=== PATIENT | female | born 1975 | race Caucasian/White ===

== ENCOUNTER 2018-02-23 23:20 | Observation (INO) | payer OTHER ==
--- NOTE | 2018-02-23 23:56 | RAD ---
CHEST ONE VIEW: History: Chest pain. Comparison: 12-11-12 FINDINGS: Cardiac silhouette is magnified by projection. Pulmonary vasculature is unremarkable. Mediastinum is midline. No lobar consolidation or evidence of pneumothorax. custom shop worker leads overlie the chest. IMPRESSION: No active cardiopulmonary abnormalities are demonstrated. POS: [facility]
[2018-02-24 00:50] LABS: #Basophils 0.1 thou/uL (0.0-0.2); #Eosinphils 0.4 thou/uL (0.0-0.7); #Lymphocytes 4.2 thou/uL (1.20-3.40); #Monocytes 0.5 thou/uL (0.11-0.59); #Neutrophils 6.2 thou/uL (1.40-6.50); %Eosinophils 3.2 % (0.0-10.0); %Lymphocytes 36.8 % (21.0-51.0); %Monocytes 4.7 % (0.0-10.0); %Neutrophils 54.3 % (42.0-75.0); Hemoglobin 15.7 g/dL (12.0-16.0); Mean Corpuscular HGB CONC 32.9 g/dL (32.0-36.0); Mean Corpuscular Hemoglobin 29.3 pg (27.0-31.0); Mean Corpuscular Volume 89.2 fL (78.0-98.0); Mean Platelet Volume 7.7 fL (7.4-10.4); Platelet Count 217 thou/uL (130-400); RBC Distribution Width 13.8 % (11.5-14.5); Red Blood Cell (RBC) Count 5.36 mill/uL (4.20-5.40); White Blood Cell (WBC) Count 11.4 thou/uL (4.8-10.8)
[2018-02-24 00:57] LABS: BHCG - Serum Negative (NEGATIVE); Pregs Control Background? CLEAR/WHITE (CLR/WHITE); Pregs Control Bar Appear? YES (CONTROL BAR)
[2018-02-24 00:59] LABS: INR-International Normal Ratio 0.9; PTT 27.2 SEC (22.9-36.1); Prothrombin Time 12.2 SEC (12.0-14.7)
[2018-02-24 01:07] LABS: ALT (SGPT) 16 U/L (8-55); AST (SGOT) 14 U/L (5-34); Albumin 4.2 g/dL (3.5-5.0); Alkaline Phosphatase 78 U/L (40-150); Anion Gap 14 mmol/L (10-20); BUN (Urea Nitrogen) 17 mg/dL (7.0-18.7); Bilirubin, Total 0.3 mg/dL (0.2-1.2); Calc. Creatinine Clearance 0 mL/min (70-130); Calcium 10.1 mg/dL (7.8-10.44); Carbon Dioxide 21 mmol/L (22-29); Chloride 105 mmol/L (98-107); Estimated GFR-MDRD 72; Globulin 3.9 g/dL (2.4-3.5); Glucose 160 mg/dL (70-105); Lipase 54 U/L (8-78); Protein, Total 8.1 g/dL (6.0-8.3); Sodium 136 mmol/L (136-145)
[2018-02-24 01:09] LABS: CKMB 0.5 ng/mL (0-6.6); Troponin I Less than 0.010 ng/mL (< 0.028)
[2018-02-24 02:06] LABS: Thyroid Stimulating Hormone 3.2386 uIU/mL (0.35-4.94)
[2018-02-24 03:00] LABS: Pregnancy Test - Urine (BHCG) Negative (Negative); Pregu Control Background? CLEAR/WHITE (CLR/WHITE); Pregu Control Bar Appear? YES (CONTROL BAR); Specific Gravity 1.056 (1.002-1.036)
[2018-02-24] MEDS ORDERED: Acetaminophen 325 MG TAB PO PRN ×2 (03:52→07:58)
[2018-02-24] MEDS ORDERED: Ondansetron ODT 4 MG TAB SL PRN (03:52)
[2018-02-24] MEDS ORDERED: Ondansetron HCl/PF 4 MG/2 ML Vial IVP PRN ×2 (03:52→07:58)
[2018-02-24 04:09] VITALS: BMI 54.6
[2018-02-24 05:34] LABS: Troponin I Less than 0.010 ng/mL (< 0.028)
[2018-02-24] MEDS ORDERED: busPIRone HCl 10 MG TAB PO SCH (05:45)
[2018-02-24] MEDS ORDERED: OXcarbazepine 300 MG/5 ML UDCUP PO SCH ×3 (05:45→21:00)
[2018-02-24] MEDS ORDERED: Senokot 8.6 MG TAB PO PRN (07:58)
[2018-02-24] MEDS ORDERED: Sodium Chloride 0.65% Nasal 44 ML BOT EA NARE PRN (07:58)
[2018-02-24] MEDS ORDERED: Mag-Al 1200 mg/1200 mg/30 ML UDCUP PO PRN (07:58)
[2018-02-24] MEDS ORDERED: HumaLOG 300 UNITS/3 ML VIAL SC PRN (07:58)
[2018-02-24] MEDS ORDERED: Milk Of Magnesia 30 ML UDCUP PO PRN (07:58)
[2018-02-24] MEDS ORDERED: Dextrose 50% Abboject 50 ML SYRINGE SLOW IVP PRN (07:58)
[2018-02-24] MEDS ORDERED: Eucerin (Mineral Oil/Petrolatum,White) 30 gm Jar TOP PRN (07:58)
[2018-02-24] MEDS ORDERED: Nitroglycerin 0.4 MG TAB (25 Tab Bottle) SL PRN (07:58)
[2018-02-24] MEDS ORDERED: Chloraseptic Spray 180 ml Bottle PO PRN (07:58)
[2018-02-24] MEDS ORDERED: Dextrose 5% in Water 1,000 ML IV PRN (07:58)
[2018-02-24] MEDS ORDERED: Ondansetron ODT 4 MG TAB PO PRN (07:58)
[2018-02-24] MEDS ORDERED: Loratadine 10 MG TAB PO PRN (07:58)
[2018-02-24] MEDS ORDERED: Artificial Tears 18 DROP/0.9 ML EA EYE PRN (07:58)
[2018-02-24] MEDS ORDERED: Loperamide HCl 2 MG CAP PO PRN (07:58)
[2018-02-24] MEDS ORDERED: Diabetic Tussin 200 MG/10 ML UDCUP PO PRN (07:58)
[2018-02-24] MEDS ORDERED: hydrALAZINE 20 MG/ML VIAL SLOW IVP PRN (07:58)
[2018-02-24] MEDS ORDERED: Aspirin 325 MG TAB PO SCH ×2 (09:00)
[2018-02-24] MEDS ORDERED: (Canagliflozin [Invokana] 300 MG) PO SCH (09:00)
[2018-02-24 09:14] LABS: Cardiac Risk 4.9 (Less than 4.5)
--- NOTE | 2018-02-24 09:16 | CT ---
PRELIMINARY REPORT/[facility]/EMERGENTY AFTER-HOURS PROCEDURE CT Angiography Chest With Intravenous Contrast EXAM DATE/TIME: 02/24/2018 1:55 AM CLINICAL HISTORY: 42 years old, female; Pain; Chest pain; Patient HX: Er 1; PT with HX HTN, dm, cad, unknown arrhythmia , and multiple dvts on eliquis presents for central chest pressure, palpitations, and difficulty burton thing starting about 4 hours ago. Denies any recent fever, chills, cough, congestion, or other illnes s. Reports that she has had palpitations in the past but they usually go away. Took her BP at home an d noted it to be elevated at 162/120. TECHNIQUE: Axial computed tomographic angiography images of the chest with intravenous contrast using CT angiogr aphy protocol. MIP reconstructed images were created and reviewed. COMPARISON: No relevant prior studies available. FINDINGS: Pulmonary arteries: Normal. No pulmonary emboli. Aorta: Normal. No aortic aneurysm. No aortic dissection. Lungs: Indeterminate 5 mm pulmonary nodule. Lungs otherwise clear. Pleural space: Normal. No pneumothorax. No pleural effusion. Heart: Normal. No cardiomegaly. No pericardial effusion. Mediastinum: Esophagus is unremarkable. Bones/joints: Unremarkable. No acute fracture. Soft tissues: Unremarkable. Lymph nodes: Unremarkable. No enlarged lymph nodes. Gallbladder and bile ducts: Prior cholecystectomy. Spleen: Borderline splenomegaly. IMPRESSION: Borderline splenomegaly. Thank you for allowing us to participate in the care of your patient. Dictated and Authenticated by: Kd Anand MD 02/24/2018 2:09 AM Central Time ([place] & [place]) FINAL REPORT CTA OF THE CHEST: COMPARISON: 01/07/16. HISTORY: Hypertension. Coronary artery disease. Unknown arrhythmia. Multiple DVTs. Central chest pain. Di fficulty breathing. TECHNIQUE: CT angiogram of the chest was performed in the axial plane. Three-dimensional reformatted images are submitted for interpretation. FINDINGS: This report is in agreement with the preliminary report by [facility]. No evidence of pulmonary artery embo lism to the level of the segmental arteries. No evidence of dissection or aneurysm with regards to t he aorta. The spleen is mildly enlarged measuring 14.3 cm. Dependent atelectatic changes. Stable pleural-based nodule along the superior segment of the left lo wer lobe measuring 5 mm. There has been more than 2 years of stability. POS: [facility]
[2018-02-24 09:17] LABS: Troponin I Less than 0.010 ng/mL (< 0.028)
[2018-02-24] MEDS: Metoprolol Tartrate 25 MG TAB PO SCH ×2 (09:20→21:08)
[2018-02-24] MEDS: Famotidine 20 MG TAB PO SCH ×2 (09:20→21:09)
[2018-02-24] MEDS: Venlafaxine HCl XR 150 MG CAP PO SCH (09:20)
[2018-02-24] MEDS: Apixaban 5 MG TAB PO SCH ×2 (09:20→21:09)
[2018-02-24] MEDS: busPIRone HCl 10 MG TAB PO SCH ×2 (09:20→21:11)
[2018-02-24] MEDS: Aspirin 81 mg Enteric Coated Tablet PO SCH (09:20)
--- NOTE | 2018-02-24 13:55 | HP ---
PRIMARY CARE PHYSICIAN: Dr. Dimitry Penn REASON FOR ADMISSION: Chest pain. HISTORY OF PRESENT ILLNESS: A 42-year-old female who came to emergency room with the complaint of chest pain. The patient reports that chest pain started yesterday in the evening time which was substernal in location, constant, pressure-like sensation as if somebody seated on her chest, mild discomfort noted in left shoulder, but no other radiation. She did feel some shortness of breath, dizziness, palpitation and weakness. The pain was persistent up until she arrived to emergency room. Even when I was taking history and physical from her this morning, she was also experiencing similar symptoms which brought her to ER. The patient denies any acid reflux symptoms. She does have acid reflux symptoms , but at this presentation is completely different and it has nothing to do with food or any burping. She denies any constipation, diarrhea. She denies any UTI symptoms. She denies any lower extremity edema or calf tenderness. She does have a history of DVT and she is on chronic anticoagulation with Eliquis in the emergency room, the patient had chest x-ray which was normal. She had CT angio which was negative for pulmonary embolism. The patient had routine blood test done in the emergency room which was completely negative. REVIEW OF SYSTEMS: The following complete review of systems was negative, unless otherwise mentioned in the HPI or below: Constitutional: Weight loss or gain, ability to conduct usual activities. Skin: Rash, itching. Eyes: Double vision, pain. ENT/Mouth: Nose bleeding, neck stiffness, pain, tenderness. Cardiovascular: Palpitations, dyspnea on exertion, orthopnea. Respiratory: Shortness of breath, wheezing, cough, hemoptysis, fever or night sweats. Gastrointestinal: Poor appetite, abdominal pain, heartburn, nausea, vomiting, constipation, or diarrhea. Genitourinary: Urgency, frequency, dysuria, nocturia. Musculoskeletal: Pain, swelling. Neurologic/Psychiatric: Anxiety, depression. Allergy/Immunologic: Skin rash, bleeding tendency. Please see my HPI for pertinent positive and negative. All other review of systems reviewed and negative except as mentioned in the HPI. PAST MEDICAL HISTORY: Morbid obesity, diabetes type 2, hypertension, atrial fibrillation, dyslipidemia, history of recurrent DVT, chronic anticoagulation with Eliquis. PAST SURGICAL HISTORY: Cyst removed from ovary, endometriosis, cholecystectomy , breast augmentation and history of breast reduction, benign tumor removed from neck, laparotomy. PAST PSYCHIATRIC HISTORY: Schizoaffective disorder, bipolar disorder, anxiety disorder. SOCIAL HISTORY: Patient is . She lives at home. No history of tobacco , alcohol or illicit drug abuse. She is an ex-smoker and quit smoking more than 10 years ago. FAMILY HISTORY: No strong family history of CAD, CVA or cancer. ALLERGIES: PENICILLIN, TORADOL. CURRENT HOME MEDICATIONS: Trileptal 750 mg p.o. b.i.d., venlafaxine 300 mg p.o. daily, trazodone 100 mg p.o. at bedtime, metoprolol tartrate 25 mg p.o. b.i.d., metformin 1000 mg p.o. daily, Ativan 1 mg p.o. at bedtime, Atarax 50 mg p.o. at bedtime, cetirizine 10 mg p.o. daily, Invokana 300 mg p.o. daily, buspirone 30 mg p.o. b.i.d., Lipitor 10 mg p.o. at bedtime, aspirin 81 mg p.o. daily, Eliquis 5 mg p.o. b.i.d. EMERGENCY ROOM COURSE: The patient was given aspirin. PHYSICAL EXAMINATION: VITAL SIGNS: On arrival, blood pressure 161/69, pulse 96, respiratory rate 18, temperature 98.6, saturation 97% on room air, weight 140 kilograms. GENERAL: The patient is currently alert, awake, no obvious acute distress. HEENT: Head normocephalic, atraumatic. Eyes: Pupils round, reactive to light. Extraocular muscle intact. ENT: Oropharynx within normal limits. Moist mucous membranes, no oral lesion, no pharyngeal erythema, no exudate. NECK: Supple, no JVD, no thyromegaly, no carotid bruit, no jugular venous distention. LUNGS: Clear to auscultation without any rhonchi or rales. CARDIAC: S1, S2 regular. No murmur, no gallop, no rub. ABDOMEN: Morbid obesity present. Bowel sounds present, nontender, nondistended. No peritoneal sign, no epigastric or right upper quadrant tenderness. BACK: Unremarkable, no CVA tenderness. EXTREMITIES: Upper extremity passive movement of all joints are normal. Lower extremities: No edema. Good distal pulsation, no calf tenderness. SKIN: No skin rash. HEMATOLOGICAL: No lymphadenopathy. PSYCHIATRIC: Normal affect. SIGNIFICANT LABORATORY DATA: EKG showing incomplete right bundle branch block pattern. Chest x-ray based on my review, no acute cardiopulmonary process. CT angio negative for PE, but borderline splenomegaly. CBC: WBC 11.4, hemoglobin 15.7, platelet 217. INR 0.9. Sodium 136, potassium 4.0, chloride 105, carbon dioxide 21, BUN 17, creatinine 0.86, calcium 10.1. LFT normal. Cardiac enzymes negative x3. BNP less than 10. Lipase 54. test negative. TSH 3.23. ASSESSMENT AND PLAN: 1. Chest pain. The patient's chest pain description is atypical. She has negative cardiac enzymes. EKG is unremarkable. She has negative CT angio. She is already on chronic anticoagulation therapy. She is hemodynamically stable. At this point, but based on the patient's risk factor profile her probability of coronary artery disease with this chest pain is mild, but needs to be excluded. Patient cannot walk on treadmill and that is why we need to do pharmacological stress test. If stress test is done today and if it is negative , then we will consider discharging her home later on today or maybe early tomorrow. Because of her obesity, we are suspecting that she may need a 2 day stress test protocol. The patient already had breakfast this morning so that is why we will try to do at least resting part and then subsequently stress part if possible today. Lipid profile checked which is also within normal limit. We will monitor on telemetry floor and then we will continue with aspirin 81 mg p.o. daily. 2. History of atrial fibrillation as well as history of recurrent DVT on chronic anticoagulation with Eliquis 5 mg p.o. b.i.d. Currently, patient is in sinus rhythm. We will monitor on telemetry floor. CT angio is negative for PE. 3. Dyslipidemia. Lipid profile checked and it is within normal limit. Continue Lipitor 10 mg p.o. at bedtime. 4. Diabetes type 2. We will continue with insulin as per sliding scale protocol. We will hold metformin because of CT angio and Invokana we do not carry in our hospital. 5. Anxiety, depression, schizoaffective disorder. We will continue Trileptal 750 mg p.o. at bedtime, trazodone 100 mg p.o. at bedtime, Effexor XR 300 mg p.o. daily, buspirone 30 mg p.o. b.i.d. 6. Morbid obesity with BMI of 54. Dietary education given, weight loss education given. Healthy lifestyle measures discussed with the patient. 7. Deep venous thrombosis prophylaxis not needed because patient is already on Eliquis therapy. 8. Gastrointestinal prophylaxis. Pepcid 20 mg p.o. b.i.d. CODE STATUS: The patient is FULL CODE. The patient's is surrogate decision maker. Disposition plan based on clinical course. We are expecting the patient's stay in hospital 24 hours. Plan of care discussed with the patient and her at bedside. BUDDYD
[2018-02-24] MEDS: HumaLOG 300 UNITS/3 ML VIAL SC PRN (14:54)
[2018-02-24] MEDS ORDERED: Lorazepam 1 MG TAB PO SCH (21:00)
[2018-02-24] MEDS ORDERED: Atorvastatin Calcium 10 MG TAB PO SCH (21:00)
[2018-02-24] MEDS ORDERED: hydrOXYzine 25 MG TAB PO SCH (21:00)
[2018-02-24] MEDS ORDERED: traZODone HCl 50 MG TAB PO SCH (21:00)
[2018-02-24] MEDS: HYDROcodone/Acetaminophen 5/325 mg Tablet PO PRN (21:07)
[2018-02-25] MEDS ORDERED: Canagliflozin [Invokana] 300 MG PO SCH (09:00)
[2018-02-25] MEDS: Aspirin 81 mg Enteric Coated Tablet PO SCH (10:38)
[2018-02-25] MEDS: busPIRone HCl 10 MG TAB PO SCH (10:38)
[2018-02-25] MEDS: Apixaban 5 MG TAB PO SCH (10:38)
[2018-02-25] MEDS: Famotidine 20 MG TAB PO SCH (10:39)
[2018-02-25] MEDS: Venlafaxine HCl XR 150 MG CAP PO SCH (10:40)
[2018-02-25] MEDS: Metoprolol Tartrate 25 MG TAB PO SCH (10:40)
[2018-02-25] MEDS: HumaLOG 300 UNITS/3 ML VIAL SC PRN (10:49)
--- NOTE | 2018-02-25 11:36 | NM ---
MYOCARDIAL PERFUSION SCAN: 02/25/2018 PROVIDED CLINICAL HISTORY: Chest pain. RADIOPHARMACEUTICAL: Technetium 99m labeled sestamibi, 27 millicuries, IV stress. Technetium 99m labeled sestamibi, 27 millicuries, IV rest. FINDINGS: There is a normal, homogeneous distribution of radiotracer throughout the left ventricular myocardium , on both stress and rest. Gated data demonstrate normal myocardial wall motion and thickening, with a calculated LVEF of 67%. TID is 0.98. IMPRESSION: No scintigraphic evidence for ischemia. POS: [facility]
--- NOTE | 2018-02-25 12:16 | DIS ---
DATE OF ADMISSION: 02/24/2018 DATE OF DISCHARGE: 02/25/2018 DISCHARGE DISPOSITION: Home. PRIMARY DISCHARGE DIAGNOSIS: Chest pain, ruled out acute coronary syndrome. SECONDARY DISCHARGE DIAGNOSES: 1. History of paroxysmal atrial fibrillation. 2. Morbid obesity with BMI 54. 3. Hypertension. 4. History of deep venous thrombosis. 5. Chronic anticoagulation. 6. Diabetes, type 2. PRIMARY PROCEDURE/OPERATION: None. RADIOLOGICAL INVESTIGATION: Chest x-ray normal. CT angio negative for PE. Stress test negative for ischemia. SIGNIFICANT LABORATORY DATA: Hemoglobin 15.7, INR 0.9, LDL 88. Cardiac enzymes negative x3. Creati nine 0.86. DISCHARGE MEDICATIONS: New medication: Protonix 40 mg p.o. daily. Continue following medications: Eliquis 5 mg p.o. b.i.d., aspirin 81 mg p.o. daily, Lipitor 10 mg p.o. at bedtime, buspirone 30 mg p .o. b.i.d., Invokana 300 mg p.o. daily, cetirizine 10 mg p.o. daily, Atarax 50 mg p.o. at bedtime, At oniel 1 mg p.o. at bedtime, metformin 1000 mg p.o. daily, metoprolol 25 mg p.o. b.i.d., oxcarbazepine 750 mg p.o. at bedtime, Trazodone 100 mg p.o. at bedtime, and venlafaxine 300 mg p.o. daily. CONTRAINDICATIONS: None. CODE STATUS: FULL CODE. INPATIENT CONSULTANTS: None. ALLERGIES: TORADOL, PENICILLIN. DISCHARGE PLAN: Post hospital, the patient will follow up with Dr. Fili Moraes in 1 week. HOSPITAL COURSE: A 42-year-old female, who was admitted by me. Please see my HPI for further detail s. The patient was admitted for chest pain. In the emergency room, her electrocardiogram was unrema rkable. Chest x-ray and a CT angio was negative for PE. She had negative cardiac enzymes. Subseque ntly, patient did not have any further chest pain while in hospital. Her description was atypical an d that is why we did a stress test and that came back negative. Stress test was done in 2 days lyle col because of her morbid obesity. We suspected acid reflux contributing to her chest pain and that is why we prescribed Protonix therapy upon discharge. The rest of medications she will continue upon discharge. We holded metformin because of CT angio while in hospital. She will resume that medicat ion tomorrow. The patient is seen and examined at bedside today. All test results discussed with the patient and f amily member. Her vitals are stable. Her physical examination is normal. New medication prescripti on sent to her pharmacy.
[2018-02-25] MEDS: HYDROcodone/Acetaminophen 5/325 mg Tablet PO PRN (12:58)
[2018-02-25 18:31] VITALS: BP 135/71; TEMP 97.7
--- NOTE | 2018-02-26 13:33 | STRESS ---
Acquisition Time: 2018-02-25 09:03:23 Total Exercise Time: 00:04:00 Test Indications: CHEST PAIN Medications: Protocol: ADENOSINE Max HR: 107 BPM 60% of Pred: 178 BPM Max BP: 118/070 mmHG Max Work Load: 1.0 METS THE PATIENT WAS INJECTED WITH ADENOSINE. SHE DID DEVELOP CHEST PAIN. THERE WAS NO SIGNIFICANT ST DEPRESSION. AWAIT NUCLEAR IMAGES FOR DEFINITIVE DIAGNOSIS. Confirmed by ISABEL KIDD ([id number]), video effects editor ISAURO GONZALEZ ([id number]) on 02/26/2018 1:32:50 PM Referred By: MD Meghna KWONG Confirmed By:ISABEL KIDD
== END 2018-02-25 17:40 | disposition home or self-care (01) ==
LOC: ERS 23:20 → 2NO 02-24 02:34
PROVIDERS: ADMIT Internal Medicine; ATTEND Internal Medicine
DX: R07.89 Other chest pain (principal); E11.9 Type 2 diabetes mellitus without complications; I10 Essential (primary) hypertension; E78.5 Hyperlipidemia, unspecified; F41.9 Anxiety disorder, unspecified; F25.0 Schizoaffective disorder, bipolar type; I48.0 Paroxysmal atrial fibrillation; E66.01 Morbid (severe) obesity due to excess calories; Z68.43 Body mass index [BMI] 50.0-59.9, adult; Z87.891 Personal history of nicotine dependence; Z86.718 Personal history of other venous thrombosis and embolism; Z79.01 Long term (current) use of anticoagulants; Z79.84 Long term (current) use of oral hypoglycemic drugs; Z79.899 Other long term (current) drug therapy; Z88.0 Allergy status to penicillin; Z88.6 Allergy status to analgesic agent; Z79.82 Long term (current) use of aspirin; Z91.048 Other nonmedicinal substance allergy status
CPT/HCPCS: 36415; 36416; 71045; 71275; 78452; 80053; 80061; 81025; 82553; 83690; 83880; 84443; 84484; 84703; 85025; 85610; 85730; 93005; 93017; A9500; G0378; J0153

== ENCOUNTER 2018-03-01 18:18 | Emergency (ER) | payer OTHER ==
[2018-03-01] MEDS ORDERED: Meclizine HCl 25 MG TAB ONE (18:43)
[2018-03-01] MEDS ORDERED: Ondansetron HCl/PF 4 MG/2 ML Vial ONE (18:43)
[2018-03-01] MEDS ORDERED: Lorazepam 2 MG/ML VIAL ONE (18:43)
[2018-03-01] MEDS ORDERED: Dexamethasone 10 MG/ML VIAL ONE (18:43)
[2018-03-01 18:50] LABS: #Basophils 0.1 thou/uL (0.0-0.2); #Eosinphils 0.4 thou/uL (0.0-0.7); #Lymphocytes 3.7 thou/uL (1.20-3.40); #Monocytes 0.3 thou/uL (0.11-0.59); #Neutrophils 4.4 thou/uL (1.40-6.50); %Eosinophils 4.4 % (0.0-10.0); %Lymphocytes 41.2 % (21.0-51.0); %Monocytes 3.6 % (0.0-10.0); %Neutrophils 49.8 % (42.0-75.0); Hemoglobin 15.9 g/dL (12.0-16.0); Mean Corpuscular HGB CONC 33.9 g/dL (32.0-36.0); Mean Corpuscular Hemoglobin 30.1 pg (27.0-31.0); Mean Corpuscular Volume 88.7 fL (78.0-98.0); Mean Platelet Volume 7.6 fL (7.4-10.4); Platelet Count 279 thou/uL (130-400); RBC Distribution Width 13.4 % (11.5-14.5); White Blood Cell (WBC) Count 8.8 thou/uL (4.8-10.8)
[2018-03-01 19:06] LABS: ALT (SGPT) 23 U/L (8-55); AST (SGOT) 19 U/L (5-34); Albumin 4.2 g/dL (3.5-5.0); Alkaline Phosphatase 87 U/L (40-150); Anion Gap 13 mmol/L (10-20); BUN (Urea Nitrogen) 22 mg/dL (7.0-18.7); Bilirubin, Total 0.3 mg/dL (0.2-1.2); Calc. Creatinine Clearance 0 mL/min (70-130); Carbon Dioxide 24 mmol/L (22-29); Chloride 106 mmol/L (98-107); Estimated GFR-MDRD 63; Glucose 188 mg/dL (70-105); Potassium 4.3 mmol/L (3.5-5.1); Protein, Total 8.2 g/dL (6.0-8.3); Sodium 139 mmol/L (136-145)
[2018-03-01 19:11] LABS: CKMB 0.6 ng/mL (0-6.6); Troponin I Less than 0.010 ng/mL (< 0.028)
--- NOTE | 2018-03-01 19:13 | RAD ---
CHEST ONE VIEW 03/01/18 HISTORY: Chest pain. COMPARISON: Chest radiograph 02/23/18. FINDINGS: The lungs are clear. No pneumothorax or effusion. The cardiac silhouette and mediastinal contours are of normal limits. IMPRESSION: No acute intrathoracic abnormality. POS: [facility]
--- NOTE | 2018-03-01 19:57 | ULT ---
LEFT LOWER EXTREMITY VENOUS DOPPLER: 03/01/18 HISTORY: Left lower extremity edema. COMPARISON: None. TECHNIQUE: Real time calvert scale, color doppler and spectral analysis left lower extremity venous system is perfo rmed. Common femoral, femoral, proximal portions of the greater saphenous and deep femoral veins as w ell as the popliteal and posterior tibial veins were interrogated. Normal flow, augmentation and compression. IMPRESSION: No deep venous thrombosis. POS: [facility]
--- NOTE | 2018-03-08 11:32 | EKG ---
Test Reason : Blood Pressure : / mmHG Vent. Rate : 089 BPM Atrial Rate : 089 BPM P-R Int : 134 ms QRS Dur : 102 ms QT Int : 376 ms P-R-T Axes : 011 027 029 degrees QTc Int : 457 ms Normal sinus rhythm Cannot rule out Anterior infarct , age undetermined Abnormal ECG Confirmed by ROSIE LUO, JESS ([id number]), editor index FIORDALIZA HERNANDES ([id number]) on 03/08/2018 11:31:57 AM Referred By: Confirmed By:JESS VELEZ MD
== END 2018-03-01 20:47 | disposition home or self-care (01) ==
LOC: ERS 18:18
DX: R42 Dizziness and giddiness (principal); I48.91 Unspecified atrial fibrillation; E78.5 Hyperlipidemia, unspecified; E11.9 Type 2 diabetes mellitus without complications; E66.9 Obesity, unspecified; F25.9 Schizoaffective disorder, unspecified; F31.9 Bipolar disorder, unspecified; F41.9 Anxiety disorder, unspecified; Z79.899 Other long term (current) drug therapy; Z79.82 Long term (current) use of aspirin
CPT/HCPCS: 71045; 80053; 82550; 82553; 84484; 85025; 93005; 96374; 96375; J1100; J2060; J2405

== ENCOUNTER 2018-05-25 15:03 | Emergency (ER) | payer OTHER ==
--- NOTE | 2018-05-25 18:03 | CT ---
CT CERVICAL SPINE: 05/25/2018 PROVIDED CLINICAL HISTORY: Neck pain. FINDINGS: There is no evidence for fracture or traumatic subluxation. Evaluation of the soft tissues is limite d by beam hardening artifact, related to the patient's body habitus. There is no prevertebral soft t issue swelling apparent. The visualized lung apices appear clear. IMPRESSION: No evidence for fracture or traumatic subluxation. POS: [facility]
== END 2018-05-25 18:07 | disposition home or self-care (01) ==
LOC: ERS 15:03
DX: S16.1XXA Strain of muscle, fascia and tendon at neck level, initial encounter (principal); I49.9 Cardiac arrhythmia, unspecified; I48.91 Unspecified atrial fibrillation; E66.9 Obesity, unspecified; E78.5 Hyperlipidemia, unspecified; E11.9 Type 2 diabetes mellitus without complications; Z86.718 Personal history of other venous thrombosis and embolism; F25.9 Schizoaffective disorder, unspecified; F31.9 Bipolar disorder, unspecified; F41.9 Anxiety disorder, unspecified; Z79.899 Other long term (current) drug therapy; Z79.82 Long term (current) use of aspirin; Z79.01 Long term (current) use of anticoagulants; X58.XXXA Exposure to other specified factors, initial encounter
CPT/HCPCS: 72125

== ENCOUNTER 2019-10-26 18:33 | Emergency (ER) | payer OTHER ==
[2019-10-26 19:24] LABS: #Eosinphils 0.2 thou/uL (0.0-0.7); #Lymphocytes 4.2 thou/uL (1.20-3.40); #Monocytes 0.6 thou/uL (0.11-0.59); #Neutrophils 4.5 thou/uL (1.40-6.50); %Basophils 0.5 % (0.0-1.0); %Lymphocytes 44.5 % (21.0-51.0); %Monocytes 6.2 % (0.0-10.0); %Neutrophils 46.8 % (42.0-75.0); Hemoglobin 17.4 g/dL (12.0-16.0); Mean Corpuscular HGB CONC 33.2 g/dL (32.0-36.0); Mean Corpuscular Hemoglobin 29.7 pg (27.0-31.0); Mean Corpuscular Volume 89.4 fL (78.0-98.0); Mean Platelet Volume 7.4 fL (7.4-10.4); Platelet Count 206 thou/uL (130-400); RBC Distribution Width 12.8 % (11.5-14.5); Red Blood Cell (RBC) Count 5.86 mill/uL (4.20-5.40); White Blood Cell (WBC) Count 9.5 thou/uL (4.8-10.8)
--- NOTE | 2019-10-26 19:37 | RAD ---
CHEST ONE VIEW: Indication: Chest pain Comparison: 11-04-18 FINDINGS: Lungs are clear. Heart size is normal. No acute osseous abnormality is present. IMPRESSION: No acute cardiopulmonary abnormality. POS: [facility]
[2019-10-26 19:46] LABS: ALT (SGPT) 27 U/L (8-55); AST (SGOT) 13 U/L (5-34); Albumin 4.1 g/dL (3.5-5.0); Alkaline Phosphatase 95 U/L (40-110); Anion Gap 14 mmol/L (10-20); BUN (Urea Nitrogen) 21 mg/dL (7.0-18.7); Bilirubin, Total 0.4 mg/dL (0.2-1.2); Calc. Creatinine Clearance 0 mL/min (70-130); Calcium 9.1 mg/dL (7.8-10.44); Carbon Dioxide 20 mmol/L (22-29); Chloride 107 mmol/L (98-107); Estimated GFR-MDRD 80; Globulin 2.6 g/dL (2.4-3.5); Glucose 162 mg/dL (70-105); Protein, Total 6.7 g/dL (6.0-8.3); Sodium 137 mmol/L (136-145)
[2019-10-26 20:10] LABS: BHCG - Serum Negative (NEGATIVE); Pregs Control Background? CLEAR/WHITE (CLR/WHITE); Pregs Control Bar Appear? YES (CONTROL BAR)
--- NOTE | 2019-10-31 15:19 | EKG ---
Test Reason : Blood Pressure : / mmHG Vent. Rate : 097 BPM Atrial Rate : 097 BPM P-R Int : 148 ms QRS Dur : 102 ms QT Int : 364 ms P-R-T Axes : 065 031 031 degrees QTc Int : 462 ms Normal sinus rhythm Possible Inferior infarct , age undetermined Cannot rule out Anterior infarct , age undetermined Abnormal ECG Confirmed by DWIGHT BLAIR DO ([id number]), film and video editor FIORDALIZA HERNANDES ([id number]) on 10/31/2019 3:18:55 PM Referred By: Confirmed By:DWIGHT BLAIR DO
== END 2019-10-26 21:08 | disposition home or self-care (01) ==
LOC: ERS 18:33
DX: R07.89 Other chest pain (principal); I49.9 Cardiac arrhythmia, unspecified; I48.91 Unspecified atrial fibrillation; E66.9 Obesity, unspecified; E78.5 Hyperlipidemia, unspecified; E11.9 Type 2 diabetes mellitus without complications; F25.9 Schizoaffective disorder, unspecified; F31.9 Bipolar disorder, unspecified; F43.10 Post-traumatic stress disorder, unspecified; Z87.891 Personal history of nicotine dependence; Z86.718 Personal history of other venous thrombosis and embolism
CPT/HCPCS: 36415; 71045; 80053; 84484; 84703; 85025; 93005

== ENCOUNTER 2019-11-02 23:00 | Observation (INO) | payer OTHER ==
[2019-11-03] MEDS ORDERED: hydrOXYzine 25 MG TAB ONE (00:18)
[2019-11-03 01:34] LABS: Troponin I Less than 0.010 ng/mL (< 0.028)
[2019-11-03] MEDS ORDERED: HumaLOG 300 UNITS/3 ML VIAL SC PRN ×2 (02:13)
[2019-11-03] MEDS ORDERED: Dextrose 5% in Water 1,000 ML IV PRN (02:13)
[2019-11-03] MEDS ORDERED: Dextrose 50% Abboject 50 ML SYRINGE SLOW IVP PRN (02:13)
[2019-11-03] MEDS ORDERED: Acetaminophen 325 MG TAB PO PRN (02:14)
--- NOTE | 2019-11-03 02:23 | PDOC.HHP ---
Hospitalist HPI - History of Present Illness Chest pain, SOB History of Present Illness: PCP: Dr. Penn Wood Engraver: Dr. Johnson The patient is a 44/F with PMH significant for HTN, HLD, DMII, paroxysmal afib ( on eliquis), bilateral DVT and obesity presents for the above complaint. The patient reports developing acute onset of chest pain and SOB at 1800 this evening while taking a shower. Reports associated light headedness. States that she almost past out, but her son caught her and kept her from falling down. She sat in shower chair until could come home and dress her. Either her son or spouse called EMS. Reports recent cough and congestion, tested negative for COVID approximately 2 weeks ago. Denies any heart palpitations or lower extremity swelling. Denies any wheezing. Denies any fever or chills. Denies any abdominal pain, n/v/d. Denies dysuria. When EMS transferred patient to [facility] ([facility]), she became orthostatic, SBP 60s, so given 1L NS with SBP improved to 130s. ED Course: [place] [facility] EKG Sinus tachycardia, [address] chest/abd/pelvis + pericardial effusion trop negative, BNP unremarkable DD 0.56 WBC 9.6 Given: Hydroxyzine in ED-Beck Hospitalist ROS - Review of Systems Constitutional: denies: fever, chills Eyes: denies: pain, vision change, conjunctivae inflammation, eyelid inflammation, redness, other ENT: denies: ear pain, ear discharge, nose pain, nose discharge, nose congestion , mouth pain, mouth swelling, throat pain, throat swelling, other Respiratory: reports: shortness of breath. denies: hemoptysis, pleuritic pain, sputum, wheezing Cardiovascular: reports: chest pain, light headedness. denies: palpitations, orthopnea, paroxysmal noc. dyspnea, edema Gastrointestinal: denies: nausea, vomiting, abdominal pain, diarrhea, constipation, melena, hematochezia Genitourinary: denies: dysuria, frequency, incontinence, hematuria, retention Musculoskeletal: denies: neck pain, shoulder pain, arm pain, back pain, hand pain, leg pain, foot pain Skin: denies: rash, lesions, bruising Neurological: denies: numbness, incoordination, change in speech Hospitalist History - Past Medical History Cardiac: reports: AFIB, HTN, Hyperlipidemia, Other (bilateral DVTs) Psych: reports: Other (schizoaffective, bipolar, PTSD) Endocrine: reports: Diabetes - Past Surgical History Past Surgical History: reports: Cholecystectomy, Hysterectomy, Other (right ovarian cyst, endometriosis, benign tumor in neck) - Family History Family History: reports: no pertinent history Other Family History: non contributory to this case - Social History Smoking Status: Former smoker (quit 10 years ago) Alcohol: reports: None Drugs: reports: marijuana (rare) Living Situation: With Family Occupation: Lives in [place] with , disabled - Exam General Appearance: NAD, awake alert Eye: anicteric sclera ENT: normocephalic atraumatic, moist mucosa Neck: supple, no JVD Heart: RRR, no murmur, no gallops, no rubs, normal peripheral pulses Respiratory: CTAB, no wheezes, no rales, no ronchi, no tachypnea Gastrointestinal: soft, non-tender, normal bowel sounds, no guarding, no rigidity Extremities: no cyanosis, no edema Neurological: no focal deficits Psychiatric: normal affect, A&O x 3 Hospitalist Results - Labs Lab results: Troponin I Less than 0.010 ng/mL (< 0.028) 11/03/19 00:56 - EKG Interpretation EKG: sinus tachycardia - Radiology Interpretation CT scan - chest Status: report reviewed by me CT scan - abdomen Status: report reviewed by me CT scan - pelvis Status: report reviewed by me Chest x-ray Status: report reviewed by me Hospitalist H&P A/P - Problem (1) Pericardial effusion Code(s): I31.3 - PERICARDIAL EFFUSION (NONINFLAMMATORY) Status: Acute Assessment and Plan: Admit to telemetry floor, observation status Expected length of stay less than 2 midnights Upon exam, resting comfortably in bed, she is anxious, which is baseline from PTSD EKG SR, sinus tach in ER, trop negative, CT chest pericardial effusion BP stable, patient became orthostatic on transfer from [place] [facility] HEART Score 3, low risk Will trend trops Consult cardiology Get echocardiogram Bedrest, fall precautions Continue eliquis, ASA NPO (2) Dyspnea Code(s): R06.00 - DYSPNEA, UNSPECIFIED Status: Acute Assessment and Plan: Likely secondary to problem #1 (3) Paroxysmal A-fib Code(s): I48.0 - PAROXYSMAL ATRIAL FIBRILLATION Status: Chronic Assessment and Plan: Been Sinus tachycardia, NSR on monitor Anticoagulated on Eliquis and Baby ASA (4) DMII (diabetes mellitus, type 2) Status: Chronic Assessment and Plan: Taking multiple oral antihypoglycemic meds Will hold oral antihypoglycemics Will start mild sliding scale Will check AC/HS (5) HTN (hypertension) Code(s): I10 - ESSENTIAL (PRIMARY) HYPERTENSION Status: Chronic Assessment and Plan: Will restart home antihypertensives when reconciled (6) HLD (hyperlipidemia) Code(s): E78.5 - HYPERLIPIDEMIA, UNSPECIFIED Status: Chronic Assessment and Plan: Will restart statin when home meds reconciled. (7) H/O deep venous thrombosis Code(s): Z86.718 - PERSONAL HISTORY OF OTHER VENOUS THROMBOSIS AND EMBOLISM Status: Chronic (8) Morbid obesity with BMI of 50.0-59.9, adult Code(s): E66.01 - MORBID (SEVERE) OBESITY DUE TO EXCESS CALORIES; Z68.43 - BODY MASS INDEX (BMI) 50.0-59.9, ADULT Status: Chronic (9) Schizoaffective disorder, bipolar type Code(s): F25.0 - SCHIZOAFFECTIVE DISORDER, BIPOLAR TYPE Status: Chronic Assessment and Plan: Will restart antipsych meds when reconciled by nursing - Plan Plan: Consult cardiac rehab NO DVT prophylaxis Pepcid for GI prophylaxis Full Code KATLIN is spouse, Noel Freedman at [phone] Angel Hilario
[2019-11-03] MEDS ORDERED: Atorvastatin Calcium 40 MG TAB PO SCH (02:45)
[2019-11-03] MEDS ORDERED: busPIRone HCl 10 MG TAB PO SCH (02:45)
[2019-11-03] MEDS ORDERED: OXcarbazepine 300 MG TAB PO SCH ×2 (02:45→21:00)
[2019-11-03] MEDS ORDERED: Metoprolol Tartrate 25 MG TAB PO SCH (02:45)
[2019-11-03] MEDS ORDERED: Lorazepam 1 MG TAB PO SCH ×2 (02:45→21:00)
[2019-11-03] MEDS ORDERED: Apixaban 5 MG TAB PO SCH ×2 (02:45→09:00)
[2019-11-03] MEDS ORDERED: traZODone HCl 50 MG TAB PO SCH (02:45)
[2019-11-03 04:46] LABS: #Eosinphils 0.2 thou/uL (0.0-0.7); #Monocytes 0.6 thou/uL (0.11-0.59); #Neutrophils 3.8 thou/uL (1.40-6.50); %Basophils 0.3 % (0.0-1.0); %Eosinophils 2.1 % (0.0-10.0); %Lymphocytes 46.6 % (21.0-51.0); %Monocytes 6.4 % (0.0-10.0); %Neutrophils 44.6 % (42.0-75.0); Hemoglobin 15.6 g/dL (12.0-16.0); Mean Corpuscular HGB CONC 32.4 g/dL (32.0-36.0); Mean Corpuscular Hemoglobin 29.2 pg (27.0-31.0); Mean Corpuscular Volume 90.1 fL (78.0-98.0); Mean Platelet Volume 7.5 fL (7.4-10.4); Platelet Count 173 thou/uL (130-400); RBC Distribution Width 12.7 % (11.5-14.5); Red Blood Cell (RBC) Count 5.33 mill/uL (4.20-5.40); White Blood Cell (WBC) Count 8.6 thou/uL (4.8-10.8)
[2019-11-03 05:08] LABS: Anion Gap 13 mmol/L (10-20); BUN (Urea Nitrogen) 19 mg/dL (7.0-18.7); Calc. Creatinine Clearance 241 mL/min (70-130); Calcium 8.5 mg/dL (7.8-10.44); Carbon Dioxide 22 mmol/L (22-29); Chloride 106 mmol/L (98-107); Estimated GFR-MDRD Greater than 90; Glucose 121 mg/dL (70-105); Potassium 3.5 mmol/L (3.5-5.1); Sodium 137 mmol/L (136-145)
[2019-11-03 05:14] LABS: Troponin I Less than 0.010 ng/mL (< 0.028)
[2019-11-03] MEDS: Venlafaxine HCl XR 150 MG CAP PO SCH (08:46)
[2019-11-03] MEDS: Famotidine 20 MG TAB PO SCH ×2 (08:46→20:29)
[2019-11-03] MEDS: Aspirin 81 mg Enteric Coated Tablet PO SCH (08:46)
[2019-11-03] MEDS: Loratadine 10 MG TAB PO SCH (08:46)
[2019-11-03] MEDS: Metoprolol Tartrate 25 MG TAB PO SCH ×2 (08:46→20:29)
[2019-11-03] MEDS: busPIRone HCl 10 MG TAB PO SCH ×2 (08:50→20:28)
[2019-11-03] MEDS: Ibuprofen 800 MG TAB PO PRN ×2 (09:47→21:07)
--- NOTE | 2019-11-03 19:37 | PDOC.EVN ---
Event Note - Event Note Event Note: Seen and examined. Ensured cardiology was consulted. Cardiology states no procedures today, I advanced her diet. Evaluated current medications. Evaluated labs and imaging. Pericardial effusion evident, though unclear chronicity. Patient is on Eliquis and may need to be off for a period of time before any intervention would be attempted, though she appears clinically stable. She is breathing comfortably on room air. She does have some chest discomfort and shortness of breath with ambulation. Time was given for questions, all answered in detail.
[2019-11-03] MEDS: Atorvastatin Calcium 40 MG TAB PO SCH (20:28)
[2019-11-03] MEDS: Enoxaparin Sodium 80 MG/0.8 ML SYRINGE SC SCH (20:28)
[2019-11-03] MEDS: Enoxaparin Sodium 60 MG/0.6 ML SYRINGE SC SCH (20:28)
[2019-11-03] MEDS: traZODone HCl 50 MG TAB PO SCH (20:29)
[2019-11-03] MEDS: Cyclobenzaprine 10 MG TAB PO PRN (20:30)
[2019-11-03] MEDS: hydrOXYzine 25 MG TAB PO PRN (20:30)
[2019-11-03] MEDS: OXcarbazepine 300 MG TAB PO SCH (21:07)
--- NOTE | 2019-11-04 00:12 | CON ---
DATE OF CONSULTATION: 11/03/2019 REASON FOR CONSULTATION: Chest pain and pericardial effusion. PRIMARY PROFESSOR OF ENVIRONMENTAL STUDIES: Sher Johnson MD HISTORY OF PRESENT ILLNESS: Ms. Freedman is a pleasant 44-year-old white female, who comes to the hospital for several complaints. She states she felt very weak. She had chest tightness. She had tingling in her arms and feet. She was seen in the ER for this and a CT chest, abdomen, and pelvis was done that found a small pericardial effusion. Because of this effusion, Cardiology is being consulted. She was hypotensive when she would stand up, so she was given IV fluids and this has resolved since. On my evaluation, Ms. Freedman denies any chest pain, tightness, pressure. She says she feels still somewhat weak, but better. PAST MEDICAL HISTORY: 1. History of atrial fibrillation. 2. Hypertension. 3. Hyperlipidemia. 4. Chronic DVTs. 5. Schizoaffective disorder. 6. Bipolar disorder. 7. PTSD. 8. Type 2 diabetes. SURGICAL HISTORY: 1. Cholecystectomy. 2. Hysterectomy. 3. Right ovarian cyst and removal of endometriosis. 4. Benign tumor in the neck, removed. FAMILY HISTORY: Noncontributory. SOCIAL HISTORY: Quit smoking 10 years ago. Rare marijuana use. No alcohol. OUTPATIENT MEDICATIONS: 1. Cyclobenzaprine. 2. Zyrtec. 3. Eliquis 5 mg b.i.d. 4. Invokana. 5. BuSpar. 6. Lipitor. 7. Aspirin 81 a day. 8. Metoprolol 25 mg b.i.d. 9. Lorazepam. 10. Oxcarbazepine. 11. Venlafaxine. 12. Pantoprazole. 13. Trazodone. 14. Metformin. 15. Hydroxyzine. ALLERGIES: 1. ADHESIVE TAPE. 2. KETOROLAC. 3. PENICILLIN. REVIEW OF SYSTEMS: A 12-point review of systems was done and was all negative unless stated in the history of present illness. PHYSICAL EXAMINATION: VITAL SIGNS: Temperature 98.7, pulse 89, respiratory rate 18, saturating 96% on room air, blood pressure 120/69. GENERAL: Awake, alert, oriented x3. No distress. HEENT: Normocephalic, atraumatic. NECK: Supple. LUNGS: Clear. CARDIOVASCULAR: S1, S2. No S3 or S4. No murmurs. ABDOMEN: Soft. Positive bowel sounds. EXTREMITIES: No edema. SKIN: Warm and dry. LABORATORY DATA: Laboratory work was reviewed. CMP is unremarkable. I ordered a CRP earlier today and it was undetectable. Troponin was negative x2. Glucose was a little bit on the high side. CBC with a white count of 8, hemoglobin of 15, hematocrit of 48, platelet count of 173. EKG is unremarkable. Echocardiogram was reviewed. Very minimal fluid if any. EF was normal. Grade 2/3 diastolic dysfunction. ASSESSMENT: 1. Atypical chest pain. 2. Small pericardial effusion. 3. Normal inflammatory markers. PLAN: 1. At this point, given her normal inflammatory markers, I think she will benefit from further risk stratification with a heart catheterization. I doubt that her symptoms are related to pericarditis as the fluid is minimum, she has no EKG changes, and her symptoms are atypical for pericarditis. 2. We will plan on stopping Eliquis and bridging with subcu Lovenox, we will plan on doing a heart catheterization probably or Saturday depending on the situation. We will most likely do it afternoon. 3. We spoke at length about the risks and benefits of the procedure. Risks included, but not limited to stroke, [place], , bleeding, need for blood transfusion, limb loss, organ loss. The patient verbalized understanding of this and agrees to proceed. Further recommendations per results of coronary angiogram. Thank you for letting us to participate in the care of your patient. Job ID: [id number]
[2019-11-04] MEDS: HYDROcodone/Acetaminophen 5/325 mg Tablet PO PRN ×2 (03:10→21:39)
[2019-11-04] MEDS: Enoxaparin Sodium 80 MG/0.8 ML SYRINGE SC SCH ×2 (08:15→21:32)
[2019-11-04] MEDS: Enoxaparin Sodium 60 MG/0.6 ML SYRINGE SC SCH ×2 (08:15→21:32)
[2019-11-04] MEDS: Venlafaxine HCl XR 150 MG CAP PO SCH (08:15)
[2019-11-04] MEDS: busPIRone HCl 10 MG TAB PO SCH ×2 (08:16→21:36)
[2019-11-04] MEDS: Famotidine 20 MG TAB PO SCH (08:16)
[2019-11-04] MEDS: Aspirin 81 mg Enteric Coated Tablet PO SCH (08:16)
[2019-11-04] MEDS: Loratadine 10 MG TAB PO SCH (08:16)
[2019-11-04] MEDS: Metoprolol Tartrate 25 MG TAB PO SCH ×2 (08:16→21:36)
[2019-11-04] MEDS ORDERED: Meclizine HCl 25 MG TAB PO PRN (10:28)
[2019-11-04] MEDS: Ibuprofen 800 MG TAB PO PRN (10:32)
[2019-11-04] MEDS: hydrOXYzine 25 MG TAB PO PRN ×2 (10:32→23:05)
--- NOTE | 2019-11-04 13:36 | PDOC.CPN ---
- Subjective Date: 11/04/19 Time: 13:00 Interval history: She is doing ok. She had chest pain overnight. Inflammatory markers normal. Chest pain positional at times but not always. - Review of Systems General: denies: fever/chills, weight/appetite/sleep changes, night sweats, fatigue Respiratory: reports: shortness of breath. denies: cough, congestion, exercise intolerance Cardiovascular: reports: chest pain. denies: palpitation, edema, paroxysmal nocturnal dyspnea, orthopnea Gastrointestinal: denies: nausea, vomiting, diarrhea, constipation, abd pain, GI bleeding Musculoskeletal: denies: pain, tenderness, stiffness, swelling, arthritis/ arthralgias Neurological: denies: numbness, syncope, seizure, weakness - Objective Allergies/Adverse Reactions: Allergies Allergy/AdvReac Type Severity Reaction Status Date / Time adhesive tape Allergy Verified 09/06/19 16:20 ketorolac tromethamine Allergy Verified 09/06/19 16:20 [From Toradol] Penicillins Allergy Verified 09/06/19 16:20 Visit Medications: Current Medications Acetaminophen (Tylenol) 650 mg PO Q4H PRN PRN Reason: Headache/Fever/Mild Pain (1-3) Hydrocodone Bitart/Acetaminophen ([place] 5/325) 1 tab PO Q4H PRN PRN Reason: Moderate to Severe Pain (6-10) Last Admin: 11/04/19 03:10 Dose: 1 tab Aspirin (Ecotrin) 81 mg PO DAILY [facility] Last Admin: 11/04/19 08:16 Dose: 81 mg Atorvastatin Calcium (Lipitor) 40 mg PO HS [facility] Last Admin: 11/03/19 20:28 Dose: 40 mg Buspirone HCl (Buspar) 30 mg PO BID [facility] Last Admin: 11/04/19 08:16 Dose: 30 mg Cyclobenzaprine HCl (Flexeril) 10 mg PO TID PRN PRN Reason: Muscle Pain Last Admin: 11/03/19 20:30 Dose: 10 mg Dextrose/Water (Dextrose 50%) 25 gm SLOW IVP PRN PRN PRN Reason: Hypoglycemia Enoxaparin Sodium (Lovenox) 80 mg SC 0900,2100 [facility] Last Admin: 11/04/19 08:15 Dose: 80 mg Enoxaparin Sodium (Lovenox) 60 mg SC 0900,2100 [facility] Last Admin: 11/04/19 08:15 Dose: 60 mg Famotidine (Pepcid) 20 mg PO BID [facility] Last Admin: 11/04/19 08:16 Dose: 20 mg Glucagon (Glucagon) 1 mg IM PRN PRN PRN Reason: Hypoglycemia Hydroxyzine HCl (Atarax) 100 mg PO TIDPRN PRN PRN Reason: Anxiety Last Admin: 11/04/19 10:32 Dose: 100 mg Dextrose/Water (D5w) 1,000 mls @ 0 mls/hr IV .Q0M PRN PRN Reason: Hypoglycemia Ibuprofen (Motrin) 800 mg PO Q8H PRN PRN Reason: Moderate Pain (4-6) Last Admin: 11/04/19 10:32 Dose: 800 mg Insulin Human Lispro (Humalog) 0 units SC .MILD SLIDING SCALE PRN PRN Reason: Mild Correctional Scale Insulin Human Lispro (Humalog) 0 units SC .BEDTIME SLIDING SC PRN PRN Reason: Bedtime Correctional Scale Loratadine (Claritin) 10 mg PO DAILY [facility] Last Admin: 11/04/19 08:16 Dose: 10 mg Lorazepam (Ativan) 1 mg PO BID [facility] Meclizine HCl (Antivert) 25 mg PO DAILY PRN PRN Reason: vertigo Metoprolol Tartrate (Lopressor) 25 mg PO BID [facility] Last Admin: 11/04/19 08:16 Dose: 25 mg Oxcarbazepine (Trileptal) 1,350 mg PO HS [facility] Last Admin: 11/03/19 21:07 Dose: 1,350 mg Pantoprazole Sodium (Protonix) 40 mg PO DAILY [facility] Last Admin: 11/04/19 08:16 Dose: 40 mg Canagliflozin [ (Invokana] 300 Mg) 0 each PO DAILY [facility] Sodium Chloride (Flush - Normal Saline) 10 ml IVF PRN PRN PRN Reason: Saline Flush Last Admin: 11/04/19 08:16 Dose: 10 ml Trazodone HCl (Desyrel) 100 mg PO [facility] Last Admin: 11/03/19 20:29 Dose: 100 mg Venlafaxine HCl (Effexor Xr) 300 mg PO DAILY [facility] Last Admin: 11/04/19 08:15 Dose: 300 mg Vital Signs & Weight: Vital Signs Temp Pulse Resp BP BP BP Pulse Ox 11/04/19 11:33 98.2 F 77 18 103/72 98 11/04/19 06:55 98.7 F 94 16 103/58 L 94 L 11/04/19 02:58 97.8 F 75 16 109/70 95 Weight 325 lb - Physical Exam General: alert & oriented x3 HEENT: mucus membranes moist Neck: supple neck Cardiac: regular rate and rhythm Lungs: clear to auscultation Neuro: grossly intact Abdomen: active bowel sounds Extremities: 1+ LE edema Skin: clear Musculoskeletal: no pain - Labs Result Diagrams: 11/03/19 04:13 11/03/19 04:13 Troponin/CKMB Troponin I Less than 0.010 ng/mL (< 0.028) 11/03/19 04:13 - Telemetry Sinus rhythms and dysrhythmias: sinus rhythm - Assessment/Plan Assessment/Plan: 1. Chest pain 2. Small pericardial effusion 3. Bipolar 4. Anxiety PLAN: - Since her inflammatory markers are negative will proceed with [facility] to evaluate for CAD. - We spoke at length about risks and benefits of procedure. Risks included but not limited to stroke, [place], , bleeding and need for blood transfusion, limb loss, organ loss. She agrees to proceed. Also spoke about conscious sedation. She states she gets so nervous that likely best access would be femoral. - C tomorrow afternoon.
[2019-11-04] MEDS ORDERED: Communication Order-Pharmacy FS SCH (13:45)
--- NOTE | 2019-11-04 14:02 | PDOC.HOSPP ---
- Subjective Encounter Date: 11/04/19 Encounter Time: 08:40 Subjective: Pt seen for followup re: chest pain. Feels better today. - Objective Vital Signs & Weight: Vital Signs (12 hours) Temp Pulse Resp BP BP BP Pulse Ox 11/04/19 11:33 98.2 F 77 18 103/72 98 11/04/19 06:55 98.7 F 94 16 103/58 L 94 L 11/04/19 02:58 97.8 F 75 16 109/70 95 Weight Weight 325 lb I&O: 11/03/19 11/04/19 11/05/19 06:59 06:59 06:59 Intake Total 1760 Output Total 650 Balance 1110 Result Diagrams: 11/03/19 04:13 11/03/19 04:13 Additional Labs: Accuchecks 11/04/19 11/04/19 11/03/19 10:46 05:59 20:41 POC Glucose 205 H 121 H 148 H 11/03/19 16:42 POC Glucose 158 H Labs and MARs reviewed by me EKG Reviewed by me: Yes (Tele: NSR) Hospitalist ROS - Review of Systems Constitutional: denies: fever, chills, sweats, weakness, malaise Respiratory: reports: SOB with excertion. denies: cough, dry, shortness of breath, hemoptysis, pleuritic pain, sputum, wheezing Cardiovascular: reports: chest pain. denies: palpitations, orthopnea, paroxysmal noc. dyspnea, edema, light headedness Gastrointestinal: denies: nausea, vomiting, abdominal pain, diarrhea, constipation, melena, hematochezia Genitourinary: denies: dysuria, frequency, incontinence, hematuria, retention - Medication Medications: Active Medications Generic Name Dose Route Start Last Admin Trade Name Freq PRN Reason Stop Dose Admin Hydrocodone Bitart/Acetaminophen 1 tab 11/03/19 09:36 11/04/19 03:10 [place] 5/325 PO 1 tab Q4H PRN Administration Moderate to Severe Pain (6-10) Aspirin 81 mg 11/03/19 09:00 11/04/19 08:16 Ecotrin PO 81 mg DAILY [facility] Administration Atorvastatin Calcium 40 mg 11/03/19 21:00 11/03/19 20:28 Lipitor PO 40 mg HS [facility] Administration Buspirone HCl 30 mg 11/03/19 09:00 11/04/19 08:16 Buspar PO 30 mg BID [facility] Administration Cyclobenzaprine HCl 10 mg 11/03/19 02:16 11/03/19 20:30 Flexeril PO 10 mg TID PRN Administration Muscle Pain Enoxaparin Sodium 80 mg 11/03/19 21:00 11/04/19 08:15 Lovenox SC 11/04/19 23:59 80 mg 0900,2099 [facility] Administration Enoxaparin Sodium 60 mg 11/03/19 21:00 11/04/19 08:15 Lovenox SC 11/04/19 23:59 60 mg 0900,2099 [facility] Administration Famotidine 20 mg 11/03/19 09:00 11/04/19 08:16 Pepcid PO 20 mg BID [facility] Administration Hydroxyzine HCl 100 mg 11/03/19 02:16 11/04/19 10:32 Atarax PO 100 mg TIDPRN PRN Administration Anxiety Ibuprofen 800 mg 11/03/19 09:35 11/04/19 10:32 Motrin PO 800 mg Q8H PRN Administration Moderate Pain (4-6) Loratadine 10 mg 11/03/19 09:00 11/04/19 08:16 Claritin PO 10 mg DAILY [facility] Administration Metoprolol Tartrate 25 mg 11/03/19 09:00 11/04/19 08:16 Lopressor PO 25 mg BID [facility] Administration Oxcarbazepine 1,350 mg 11/03/19 21:00 11/03/19 21:07 Trileptal PO 1,350 mg HS [facility] Administration Pantoprazole Sodium 40 mg 11/03/19 09:00 11/04/19 08:16 Protonix PO 40 mg DAILY [facility] Administration Sodium Chloride 10 ml 11/03/19 02:11 11/04/19 08:16 Flush - Normal Saline IVF 10 ml PRN PRN Administration Saline Flush Trazodone HCl 100 mg 11/03/19 21:00 11/03/19 20:29 Desyrel PO 100 mg HS [facility] Administration Venlafaxine HCl 300 mg 11/03/19 09:00 11/04/19 08:15 Effexor Xr PO 300 mg DAILY [facility] Administration - Exam General Appearance: awake alert Eye: anicteric sclera ENT: moist mucosa Neck: supple, symmetric, no thyromegaly, no lymphadenopathy Heart: RRR, no gallops, no rubs, normal peripheral pulses Respiratory: CTAB, no rales, no ronchi, normal chest expansion Gastrointestinal: soft, non-tender, normal bowel sounds, no palpable masses Skin: no rashes Musculoskeletal: normal tone Psychiatric: normal affect, normal behavior, A&O x 3 Hosp A/P - Plan Assessment/Plan (1) Chest pain Code(s): I31.3 - PERICARDIAL EFFUSION (NONINFLAMMATORY) Status: Acute Await cath, oral anticoagulant on hold. (2) Pericardial effusion Code(s): I31.3 - PERICARDIAL EFFUSION (NONINFLAMMATORY) Status: Acute Assessment and Plan: Cardiology following (3) Paroxysmal A-fib Code(s): I48.0 - PAROXYSMAL ATRIAL FIBRILLATION Status: Chronic Assessment and Plan: Eliquis on hold, pt is on Lovenox (4) HLD (hyperlipidemia) Code(s): E78.5 - HYPERLIPIDEMIA, UNSPECIFIED Status: Chronic Assessment and Plan: Continue statin (5) HTN (hypertension) Code(s): I10 - ESSENTIAL (PRIMARY) HYPERTENSION Status: Chronic Assessment and Plan: Will restart home antihypertensives when reconciled (6) DMII (diabetes mellitus, type 2) Status: Chronic Assessment and Plan: Continue accuchecks and insulin sliding scale. Resume Invokana. (7) H/O deep venous thrombosis Code(s): Z86.718 - PERSONAL HISTORY OF OTHER VENOUS THROMBOSIS AND EMBOLISM Status: Chronic (8) Morbid obesity with BMI of 50.0-59.9, adult Code(s): E66.01 - MORBID (SEVERE) OBESITY DUE TO EXCESS CALORIES; Z68.43 - BODY MASS INDEX (BMI) 50.0-59.9, ADULT Status: Chronic (9) Schizoaffective disorder, bipolar type Code(s): F25.0 - SCHIZOAFFECTIVE DISORDER, BIPOLAR TYPE Status: Chronic Assessment and Plan: Will restart antipsych meds when reconciled by nursing
[2019-11-04] MEDS: OXcarbazepine 300 MG TAB PO SCH (21:33)
[2019-11-04] MEDS: Atorvastatin Calcium 40 MG TAB PO SCH (21:35)
[2019-11-04] MEDS: Lorazepam 1 MG TAB PO SCH (21:36)
[2019-11-04] MEDS: traZODone HCl 50 MG TAB PO SCH (21:36)
[2019-11-04] MEDS: Cyclobenzaprine 10 MG TAB PO PRN (23:05)
[2019-11-05] MEDS ORDERED: Sodium Chloride 0.9% 500 ML IV SCH ×2 (00:01→13:00)
[2019-11-05] MEDS: Aspirin 81 mg Enteric Coated Tablet PO SCH (05:49)
[2019-11-05] MEDS: busPIRone HCl 10 MG TAB PO SCH (05:49)
[2019-11-05] MEDS: Loratadine 10 MG TAB PO SCH (05:50)
[2019-11-05] MEDS: Lorazepam 1 MG TAB PO SCH (05:50)
[2019-11-05] MEDS: Metoprolol Tartrate 25 MG TAB PO SCH (05:51)
[2019-11-05] MEDS: Venlafaxine HCl XR 150 MG CAP PO SCH (05:51)
[2019-11-05] MEDS: hydrOXYzine 25 MG TAB PO PRN (08:02)
[2019-11-05] MEDS: Cyclobenzaprine 10 MG TAB PO PRN ×2 (08:02→16:57)
[2019-11-05] MEDS ORDERED: Canagliflozin [Invokana] 300 MG PO SCH (09:00)
[2019-11-05 09:17] LABS: Anion Gap 11 mmol/L (10-20); BUN (Urea Nitrogen) 20 mg/dL (7.0-18.7); Calc. Creatinine Clearance 221 mL/min (70-130); Calcium 8.4 mg/dL (7.8-10.44); Carbon Dioxide 24 mmol/L (22-29); Chloride 107 mmol/L (98-107); Estimated GFR-MDRD 84; Glucose 153 mg/dL (70-105); Potassium 3.4 mmol/L (3.5-5.1); Sodium 139 mmol/L (136-145)
[2019-11-05 09:32] LABS: Eosinophils 3 % (0-10); Hemoglobin 13.8 g/dL (12.0-16.0); Lymphocytes 54 % (21-51); MDiff Complete? YES; Mean Corpuscular HGB CONC 33.8 g/dL (32.0-36.0); Mean Corpuscular Hemoglobin 30.2 pg (27.0-31.0); Mean Corpuscular Volume 89.4 fL (78.0-98.0); Mean Platelet Volume 7.5 fL (7.4-10.4); Monocytes 1 % (0-10); Neutrophil 41 % (42-75); Platelet Count 140 thou/uL (130-400); Platelet Morphology Comment Appears Adequate; RBC Distribution Width 12.4 % (11.5-14.5); RBC Morphology Normal; Red Blood Cell (RBC) Count 4.56 mill/uL (4.20-5.40); White Blood Cell (WBC) Count 5.1 thou/uL (4.8-10.8)
[2019-11-05] MEDS ORDERED: Iopamidol 370 76% 100 ML VIAL ONE (09:35)
[2019-11-05] MEDS ORDERED: Midazolam HCl 2 mg/2 ml Vial ONE (12:06)
[2019-11-05] MEDS ORDERED: Fentanyl 100 MCG/2 ML VIAL ONE (12:07)
[2019-11-05] MEDS ORDERED: Ondansetron PF 4 MG/2 ML Vial ONE (12:32)
[2019-11-05] MEDS ORDERED: Sodium Chloride 0.9% 200 ML IV PRN (12:46)
[2019-11-05] MEDS ORDERED: Acetaminophen/Codeine 30-300mg Tablet PO PRN (12:46)
[2019-11-05] MEDS ORDERED: Ibuprofen 800 MG TAB PO SCH (14:00)
[2019-11-05 15:36] VITALS: BP 128/80; TEMP 98.7
[2019-11-05] MEDS ORDERED: Potassium Chloride 20 MEQ TAB PO SCH (16:30)
[2019-11-05] MEDS: HYDROcodone/Acetaminophen 5/325 mg Tablet PO PRN (16:57)
--- NOTE | 2019-11-06 03:55 | DIS ---
DATE OF ADMISSION: 11/03/2019 DATE OF DISCHARGE: 11/05/2019 PRIMARY CARE PROVIDER: Dr. Dimitry Penn. DISCHARGE DIAGNOSES: 1. Chest pain. 2. Chest pain, most likely secondary to musculoskeletal etiology. 3. Pericardial effusion. 4. Hypokalemia. CONDITION OF PATIENT ON THE DAY OF DISCHARGE: Stable. I assessed Ms. Freedman on the day of discharge. She reports that chest pain has improved. Vital signs are stable. S1 and S2 are heard, regular. Lungs are clear to auscultation bilaterally. CONSULTATIONS DURING THIS HOSPITALIZATION: Cardiology, Dr. Johnson. HOSPITAL COURSE: Ms. Freedman is a pleasant 44-year-old lady, who was admitted to [facility] on November 03, 2019 for chest pain. There was no evidence of pulmonary embolism on CT scan. She was seen by Cardiology Service. 2D echocardiogram showed left ventricular ejection fraction of 60% to 65% and grade 2/3 diastolic dysfunction. She underwent cardiac catheterization on November 05, 2019 and has been cleared for discharge by Cardiology Service. At the time of this dictation, the official cath report is pending. No change was made to her pre-admission home medications. POST-ACUTE CARE FOLLOWUP: With primary care provider in 3 days. DIET: Heart healthy and diabetic. ACTIVITY: No restrictions. DISCHARGE DESTINATION: Home. Many thanks for allowing me to participate in your patient's care. Please feel free to contact me with any questions or concerns. Job ID: [id number]
[2019-11-06] MEDS ORDERED: Apixaban 5 MG TAB PO SCH (09:00)
== END 2019-11-05 18:06 | disposition home or self-care (01) ==
LOC: ERS 23:00 → 2NO 11-03 00:48
PROVIDERS: ADMIT Internal Medicine; ATTEND Internal Medicine
PROC: 4A023N7 Measurement of Cardiac Sampling and Pressure, Left Heart, Percutaneous Approach (ICD-10-PCS; principal; 2019-11-05)
PROC: B2111ZZ Fluoroscopy of Multiple Coronary Arteries using Low Osmolar Contrast (ICD-10-PCS; 2019-11-05)
DX: R07.89 Other chest pain (principal); I31.3 Pericardial effusion (noninflammatory); E87.6 Hypokalemia; I48.0 Paroxysmal atrial fibrillation; I10 Essential (primary) hypertension; E78.5 Hyperlipidemia, unspecified; E11.9 Type 2 diabetes mellitus without complications; F43.10 Post-traumatic stress disorder, unspecified; F25.0 Schizoaffective disorder, bipolar type; F41.9 Anxiety disorder, unspecified; E66.01 Morbid (severe) obesity due to excess calories; Z68.43 Body mass index [BMI] 50.0-59.9, adult; Z86.718 Personal history of other venous thrombosis and embolism; Z87.891 Personal history of nicotine dependence; Z79.01 Long term (current) use of anticoagulants; Z79.82 Long term (current) use of aspirin; Z79.84 Long term (current) use of oral hypoglycemic drugs; Z79.899 Other long term (current) drug therapy; Z88.0 Allergy status to penicillin; Z88.6 Allergy status to analgesic agent; Z91.048 Other nonmedicinal substance allergy status
CPT/HCPCS: 36415; 36416; 76942; 80048; 84484; 85025; 85652; 86140; 93306; 93458; 94760; 96372; 99152; 99153; 99285; C1769; G0378; J1644; J1650; J2250; J2405; J3010; Q9967

== ENCOUNTER 2020-07-29 23:16 | Observation (INO) | payer OTHER ==
[2020-07-30] MEDS ORDERED: metroNIDAZOLE 500 MG/100 ML BAG ONE (00:05)
[2020-07-30] MEDS ORDERED: Ondansetron PF 4 MG/2 ML Vial ONE (00:10)
[2020-07-30] MEDS ORDERED: Morphine 4 MG/ML VIAL ONE (00:10)
[2020-07-30] MEDS: Morphine 4 MG/ML VIAL SLOW IVP PRN ×2 (04:11→08:24)
[2020-07-30] MEDS ORDERED: Ondansetron ODT 4 MG TAB SL PRN (04:15)
[2020-07-30] MEDS ORDERED: Ondansetron PF 4 MG/2 ML Vial IVP PRN ×2 (04:15→15:33)
[2020-07-30] MEDS ORDERED: Sodium Chloride 0.9% 1,000 ML IV SCH (04:15)
[2020-07-30 04:44] VITALS: BMI 53.8
[2020-07-30] MEDS ORDERED: metroNIDAZOLE 500 MG in Premix Bag 1 BAG IVPB SCH (08:00)
[2020-07-30 09:37] LABS: SARS-CoV-2 PCR by NAA Not Detected (NotDetected)
--- NOTE | 2020-07-30 09:42 | HP ---
CHIEF COMPLAINT: Right lower quadrant abdominal pain. HISTORY OF PRESENT ILLNESS: This is a 45-year-old female with a 3-day history of right lower quadrant pain associated with nausea and anorexia. No fever. CT scan showed appendicitis. PAST MEDICAL HISTORY: Significant for morbid obesity, diabetes mellitus, paroxysmal atrial fibrillation, deep venous thrombosis x2, bipolar, schizophrenia. PAST SURGICAL HISTORY: Cholecystectomy, hysterectomy, breast reduction, ovarian cystectomy. MEDICATIONS: She is on, 1. Eliquis, her last dose was 24 hours ago. 2. Lorazepam. 3. Meclizine. 4. Invokana. 5. Metformin. 6. Trazodone. 7. Tizanidine. 8. She is on something exenatide microspheres. 9. Metoprolol. 10. Hydroxyzine. 11. Atorvastatin. 12. Buspirone. ALLERGIES: SHE HAS AN ALLERGY TO PENICILLIN CAUSING VOMITING AND TORADOL MAKES HER SICK. SOCIAL HISTORY: She is . No tobacco. Social alcohol. Mother had heart disease and CHF. PHYSICAL EXAMINATION: VITAL SIGNS: Temperature 98.8, pulse 78, blood pressure 104/70. GENERAL: She is a morbidly obese female, lying still, in minimal distress, awake and alert. LUNGS: Clear. HEART: Regular rate and rhythm. ABDOMEN: Morbidly obese, soft. She is tender on the right lower quadrant. She has well-healed surgical scars from laparoscopy. EXTREMITIES: Unremarkable. LABORATORY DATA: Her white count is 10, H and H of 15 and 49, platelet count 168. Her coags are normal. Sodium is 141, potassium 4.1, chloride 106, CO2 of 27, BUN 20, creatinine 0.8, glucose 109. CT scan shows acute appendicitis without abscess. ASSESSMENT: Acute appendicitis. PLAN: Laparoscopic appendectomy. CONSENT: I have discussed planned procedure as well as risk of bleeding, infection, injury to bowel and bladder, need to open. She understands and gives informed consent. Job ID: [id number]
[2020-07-30 12:14] LABS: SARS-CoV-2 NAA Rapid Test Not Detected (NotDetected)
[2020-07-30] MEDS ORDERED: Morphine 4 MG/ML VIAL SLOW IVP PRN (12:22)
[2020-07-30] MEDS ORDERED: Fentanyl 100 MCG/2 ML VIAL ONE ×3 (14:00→16:04)
[2020-07-30] MEDS ORDERED: XYLOCAINE 2%-EPI 1:100,000 20 ML VIAL ONE (14:04)
[2020-07-30] MEDS ORDERED: Metoclopramide HCl 10 MG/2 ML VIAL ONE (14:04)
[2020-07-30] MEDS ORDERED: Bupivacaine 0.25% HCL 30 ML VIAL ONE (14:04)
[2020-07-30] MEDS ORDERED: Lidocaine 1% PF 5 ML VIAL ONE (14:04)
[2020-07-30] MEDS ORDERED: Rocuronium Bromide 10 MG/ML (10ML VIAL) ONE (14:04)
[2020-07-30] MEDS ORDERED: PROPOFOL 200 MG/20 ML VIAL ONE (14:04)
[2020-07-30] MEDS ORDERED: Promethazine HCl 25 MG/ML VIAL IM PRN (15:33)
[2020-07-30] MEDS ORDERED: HYDROcodone/Acetaminophen 10/325 mg Tablet PO PRN ×2 (15:33)
[2020-07-30] MEDS ORDERED: hydrALAZINE 20 MG/ML VIAL SLOW IVP PRN (15:33)
[2020-07-30] MEDS ORDERED: Dextrose 5% in Water 1,000 ML IV PRN (15:33)
[2020-07-30] MEDS ORDERED: Dextrose 50% Abboject 50 ML SYRINGE SLOW IVP PRN (15:33)
[2020-07-30] MEDS ORDERED: D5 1/2 NS w/20 mEq KCL 1,000 ML IV SCH (15:45)
[2020-07-30] MEDS ORDERED: D5 1/2 NS w/20 mEq KCL 1,000 ML ONE (16:14)
[2020-07-30 18:47] VITALS: BP 109/74; TEMP 98.7
[2020-07-30] MEDS ORDERED: Famotidine/PF 20 mg/2ml Vial SLOW IVP SCH (21:00)
[2020-07-30] MEDS ORDERED: Famotidine 20 MG TAB PO SCH (21:00)
[2020-07-30] MEDS ORDERED: Levofloxacin 500 mg/D5W 100 ml Premix Bag IVPB SCH (23:59)
[2020-07-31] MEDS ORDERED: Enoxaparin Sodium 40 MG/0.4 ML SYRINGE SC SCH (09:00)
--- NOTE | 2020-07-31 17:37 | OP ---
DATE OF PROCEDURE: 07/30/2020 PREOPERATIVE DIAGNOSIS: Acute appendicitis. PROCEDURE PERFORMED: Laparoscopic appendectomy. INDICATIONS: A 45-year-old female with a 2-day history of right lower quadrant pain. CT scan showed appendicitis. FINDINGS: Acute suppurative nonperforated appendicitis. DESCRIPTION OF PROCEDURE: After informed consent was obtained, the patient was taken to the operating room and given general endotracheal anesthesia, placed in the supine position. Abdomen was prepped and draped in usual fashion. Local anesthesia was infiltrated subcutaneously and deep, and a subumbilical incision was performed. Subcu divided sharply. The fascia was grasped and 2 stay sutures of 0 Vicryl placed through each side of midline. Midline incised. Digital palpation revealed no local adhesions. A blunt 12 mm trocar inserted. Pneumoperitoneum was created to a pressure of 15 mmHg. A 0-degree laparoscope was inserted under direct vision. Two 5-mm ports were placed, one suprapubic, one right lateral abdomen. The appendix was found. The mesoappendix was divided utilizing the LigaSure. The base of the appendix was divided with a linear 45 mm white load stapler. The appendix was placed in an endosac and removed from the abdomen in the endosac. Hemostasis was assured. The abdomen was irrigated. Irrigation fluid removed. Trocars and retractors removed. The fascia was closed with interrupted 0 Vicryl suture. The skin closed with interrupted 4-0 Rapide. Dermabond applied. The patient tolerated the procedure well, transferred to Recovery in good condition. Sponge and needle count verified correct x2. Job ID: [id number]
--- NOTE | 2020-08-03 15:23 | EKG ---
Test Reason : Blood Pressure : / mmHG Vent. Rate : 074 BPM Atrial Rate : 074 BPM P-R Int : 156 ms QRS Dur : 124 ms QT Int : 394 ms P-R-T Axes : 012 002 019 degrees QTc Int : 437 ms Normal sinus rhythm Possible Inferior infarct , age undetermined Cannot rule out Anterior infarct , age undetermined Abnormal ECG No previous ECGs available Confirmed by DAVID WAY (2) on 08/03/2020 3:23:04 PM Referred By: Confirmed By:DAVID WAY
== END 2020-07-30 18:49 | disposition home or self-care (01) ==
LOC: ERS 23:16 → SURG A 07-30 03:47
PROVIDERS: ADMIT Surgery; ATTEND Surgery
PROC: 0DTJ4ZZ Resection of Appendix, Percutaneous Endoscopic Approach (ICD-10-PCS; principal; 2020-07-30)
DX: K35.80 Unspecified acute appendicitis (principal); E11.9 Type 2 diabetes mellitus without complications; I48.0 Paroxysmal atrial fibrillation; F31.9 Bipolar disorder, unspecified; F20.9 Schizophrenia, unspecified; E66.01 Morbid (severe) obesity due to excess calories; Z68.43 Body mass index [BMI] 50.0-59.9, adult; Z86.718 Personal history of other venous thrombosis and embolism; Z79.01 Long term (current) use of anticoagulants; Z79.82 Long term (current) use of aspirin; Z79.84 Long term (current) use of oral hypoglycemic drugs; Z79.899 Other long term (current) drug therapy; Z88.0 Allergy status to penicillin; Z88.6 Allergy status to analgesic agent; Z91.048 Other nonmedicinal substance allergy status; Z20.822 Contact with and (suspected) exposure to COVID-19
CPT/HCPCS: 36416; 87635; 88304; 93005; 93010; 96365; 96366; 96367; 96375; 96376; G0378; J1956; J2270; J2405; J2704; J2765; J3010; J3480; S0020; U0002; U0003; U0005

== ENCOUNTER 2021-04-13 09:15 | Outpatient (CLI) | payer OTHER ==
[2021-04-13] MEDS ORDERED: Magnevist 469MG/ML 20 ML VIAL ONE (09:33)
== END 2021-04-13 09:16 | disposition home or self-care (01) ==
LOC: TBSIIMAG 09:15
PROVIDERS: ATTEND Nurse Practitioner Acute Care
DX: G44.309 Post-traumatic headache, unspecified, not intractable (principal)
CPT/HCPCS: 70553; A9579

== ENCOUNTER 2021-09-20 12:23 | Outpatient (CLI) | payer OTHER | END 2021-09-20 12:24 | disposition home or self-care (01) | LOC: EEG 12:23 | PROVIDERS: ATTEND Psychiatry & Neurology Neurology | DX: G44.309 Post-traumatic headache, unspecified, not intractable (principal); N39.0 Urinary tract infection, site not specified | CPT/HCPCS: 95816; 95957 ==

== ENCOUNTER 2021-11-23 05:59 | Day surgery (SDC) | payer OTHER ==
[2021-11-22 10:00] VITALS: BMI 54.3
[2021-11-23] MEDS ORDERED: Lidocaine 1% MPF 2 ML VIAL ONE (06:34)
[2021-11-23] MEDS ORDERED: Fentanyl 100 MCG/2 ML VIAL ONE (07:54)
[2021-11-23] MEDS ORDERED: Ondansetron PF 4 MG/2 ML Vial ONE ×2 (07:54→08:25)
[2021-11-23] MEDS ORDERED: Midazolam HCl 2 mg/2 ml Vial ONE (07:54)
[2021-11-23] MEDS ORDERED: PROPOFOL 200 MG/20 ML VIAL ONE (08:25)
[2021-11-23] MEDS ORDERED: Lidocaine 1% PF 5 ML VIAL ONE (08:25)
== END 2021-11-23 09:50 | disposition home or self-care (01) ==
LOC: SDC 05:59 → EEVIPCON 05:59 → SDC 09:50
PROVIDERS: ATTEND Internal Medicine Gastroenterology
PROC: 0DBH8ZZ Excision of Cecum, Via Natural or Artificial Opening Endoscopic (ICD-10-PCS; principal; 2021-11-23)
PROC: 0DB58ZX Excision of Esophagus, Via Natural or Artificial Opening Endoscopic, Diagnostic (ICD-10-PCS; principal; 2021-11-23)
DX: D12.0 Benign neoplasm of cecum (principal); K31.89 Other diseases of stomach and duodenum; R10.13 Epigastric pain; I48.91 Unspecified atrial fibrillation; Z86.010 Personal history of colon polyps; Z88.0 Allergy status to penicillin; Z88.8 Allergy status to other drugs, medicaments and biological substances; Z91.048 Other nonmedicinal substance allergy status; Z86.718 Personal history of other venous thrombosis and embolism; Z79.01 Long term (current) use of anticoagulants; Z79.899 Other long term (current) drug therapy; Z91.030 Bee allergy status; Z91.038 Other insect allergy status; Z87.891 Personal history of nicotine dependence
CPT/HCPCS: 88305; J2250; J2405; J2704; J3010

== ENCOUNTER 2022-01-10 07:09 | Outpatient (CLI) | payer OTHER ==
[2022-01-10] MEDS ORDERED: Iopamidol 300 61% 100 ML VIAL FS ONE (09:05)
== END 2022-01-10 07:10 | disposition home or self-care (01) ==
LOC: BICCT 07:09
PROVIDERS: ATTEND Physician Assistant Medical
DX: R10.10 Upper abdominal pain, unspecified (principal); K59.00 Constipation, unspecified; R82.998 Other abnormal findings in urine; K76.0 Fatty (change of) liver, not elsewhere classified
CPT/HCPCS: 74177; Q9967

== ENCOUNTER 2022-05-18 15:00 | Emergency (ER) | payer OTHER ==
[2022-05-18] MEDS ORDERED: methylPREDNISolone Sod Succ/PF 125 MG/2 ML VIAL ONE (17:03)
[2022-05-18] MEDS ORDERED: Magnesium 2 GM/50 ML BAG (IN WATER) ONE (17:03)
[2022-05-18] MEDS ORDERED: diphenhydrAMINE 50 MG/ML VIAL ONE (17:03)
[2022-05-18] MEDS ORDERED: Metoclopramide HCl 10 MG/2 ML VIAL ONE (17:03)
[2022-05-18 19:01] LABS: Bilirubin Negative (Negative); Blood, Urine Negative (Negative); Clarity Clear (Clear); Glucose, Urine (Dipstick) Greater than 1000 mg/dL (Negative); Ketone, Urine Negative (Negative); Leukocyte Negative Leu/uL (Negative); Nitrite Negative (Negative); Protein, Urine (Dipstick) Negative (Neg-Trace); Specific Gravity, Urine 1.038 (1.002-1.036); Urobilinogen Normal mg/dL (Less than 2)
[2022-05-18] MEDS ORDERED: Ondansetron PF 4 MG/2 ML Vial ONE (19:17)
[2022-05-18] MEDS ORDERED: Acetaminophen 500 MG TAB ONE (19:17)
[2022-05-18] MEDS ORDERED: Ibuprofen 200 MG TAB ONE (19:17)
== END 2022-05-18 20:33 | disposition home or self-care (01) ==
LOC: ERS 15:00
DX: G43.909 Migraine, unspecified, not intractable, without status migrainosus (principal); E11.9 Type 2 diabetes mellitus without complications; E78.5 Hyperlipidemia, unspecified
CPT/HCPCS: 81003; 96365; 96375; J1200; J2405; J2765; J2930; J3475

== ENCOUNTER 2022-07-14 14:37 | Inpatient (IN) | payer OTHER ==
[2022-07-14] MEDS ORDERED: LORazepam 2 MG/ML SYR.(CARPUJECT) ONE ×2 (14:55→16:07)
[2022-07-14] MEDS ORDERED: Naloxone HCl 0.4 mg/ml Vial ONE (15:04)
[2022-07-14 15:27] LABS: #Eosinphils 0.2 thou/uL (0.0-0.7); #Lymphocytes 2.9 thou/uL (1.20-3.40); #Monocytes 0.4 thou/uL (0.11-0.59); #Neutrophils 2.9 thou/uL (1.40-6.50); %Basophils 0.5 % (0.0-1.0); %Eosinophils 3.1 % (0.0-10.0); %Lymphocytes 45.2 % (21.0-51.0); %Monocytes 6.1 % (0.0-10.0); %Neutrophils 45.1 % (42.0-75.0); Hemoglobin 14.1 g/dL (12.0-16.0); Mean Corpuscular HGB CONC 34.4 g/dL (32.0-36.0); Mean Corpuscular Hemoglobin 31.6 pg (27.0-31.0); Mean Corpuscular Volume 91.8 fl (78.0-98.0); Platelet Count 189 10x3/uL (130-400); RBC Distribution Width 11.8 % (11.5-14.5); Red Blood Cell (RBC) Count 4.46 mill/uL (4.20-5.40); White Blood Cell (WBC) Count 6.4 10x3/uL (4.8-10.8)
[2022-07-14 15:29] LABS: Actual Bicarbonate (HCO3v) 18 mEq/L (22-28); Analyzer IN Cardio ER; Base Excess -7.4 mEq/L (-2.0 to +3.0); Calcium, Ionized (venous) 1.19 mmol/L (1.16-1.32); Chloride (VBG) 106 mmol/L (98-106); Hemoglobin (Hb) 14.4 g/dL (11.7-16.0); Potassium (VBG) 3.73 mmol/L (3.70-5.30); Sodium 140.2 mmol/L (133-146); pH (venous) 7.32 (7.32-7.43)
[2022-07-14 15:32] LABS: BHCG - Serum Negative (NEGATIVE); Pregs Control Background? CLEAR/WHITE (CLR/WHITE); Pregs Control Bar Appear? YES (CONTROL BAR)
[2022-07-14 15:52] LABS: ALT (SGPT) 44 U/L (8-55); AST (SGOT) 37 U/L (5-34); Acetaminophen Less than 10.0 mcg/mL (10.0-30.0); Albumin 4.3 g/dL (3.5-5.0); Alcohol Less than 10 mg/dL (Less than 10); Alkaline Phosphatase 37 U/L (40-110); Anion Gap 17 mmol/L (10-20); BUN (Urea Nitrogen) 16 mg/dL (7.0-18.7); Bilirubin, Total 0.3 mg/dL (0.2-1.2); CK (CPK) 72 U/L (29-168); Calc. Creatinine Clearance 0 mL/min (70-130); Calcium 9.8 mg/dL (7.8-10.44); Carbon Dioxide 20 mmol/L (22-29); Chloride 105 mmol/L (98-107); Estimated GFR 89; Globulin 3.1 g/dL (2.4-3.5); Glucose 90 mg/dL (70-105); Potassium 3.5 mmol/L (3.5-5.1); Protein, Total 7.4 g/dL (6.0-8.3); Salicylate Less than 8.0 mg/dL (15.0-30.0); Sodium 138 mmol/L (136-145)
[2022-07-14 16:02] LABS: Bilirubin Negative (Negative); Blood, Urine Negative (Negative); Clarity Clear (Clear); Glucose, Urine (Dipstick) Greater than 1000 mg/dL (Negative); Ketone, Urine Negative (Negative); Leukocyte Negative Leu/uL (Negative); Nitrite Negative (Negative); Protein, Urine (Dipstick) Negative (Neg-Trace); Specific Gravity, Urine 1.039 (1.002-1.036); Urobilinogen Normal mg/dL (Less than 2); pH, Urine 5.5 (5.0-9.0)
[2022-07-14 16:10] LABS: Amphetamine Not Detected (NotDetected); Barbiturates Screen Not Detected (NotDetected); Benzodiazepine Screen Detected (NotDetected); Cocaine Metabolite Screen Not Detected (NotDetected); Methadone Not Detected (NotDetected); Methamphetamine Not Detected (NotDetected); Opiate Screen Not Detected (NotDetected); Oxycodone Screen Not Detected (NotDetected); Phencyclidine (PCP) Not Detected (NotDetected); THC/Cannabinoid Screen Detected (NotDetected); Tricyclic Screen Not Detected (NotDetected)
[2022-07-14] MEDS ORDERED: Acetaminophen 500 MG TAB ONE ×2 (16:51→16:55)
[2022-07-14] MEDS ORDERED: diphenhydrAMINE 50 MG/ML VIAL ONE (16:51)
[2022-07-14] MEDS ORDERED: Metoclopramide HCl 10 MG/2 ML VIAL ONE (16:51)
[2022-07-14] MEDS ORDERED: Senokot S 8.6-50 MG TAB PO PRN (17:22)
[2022-07-14] MEDS ORDERED: Acetaminophen 325 MG TAB PO PRN (17:22)
[2022-07-14] MEDS ORDERED: Bisacodyl 5 MG TAB PO PRN (17:22)
[2022-07-14] MEDS ORDERED: Ondansetron PF 4 MG/2 ML Vial IVP PRN (17:22)
[2022-07-14] MEDS ORDERED: Dextrose 50% Abboject 50 ML SYRINGE SLOW IVP PRN (17:24)
[2022-07-14] MEDS ORDERED: Dextrose 5% in Water 1,000 ML IV PRN (17:24)
[2022-07-14 19:56] VITALS: BMI 50.2
[2022-07-14] MEDS ORDERED: Meclizine HCl 25 MG TAB PO PRN (20:09)
[2022-07-14] MEDS: Sodium Chloride 0.9% 1,000 ML IV SCH (20:55)
[2022-07-14] MEDS ORDERED: Melatonin 3 MG TAB PO PRN (21:03)
[2022-07-14] MEDS ORDERED: OXcarbazepine 300 MG TAB PO SCH (21:45)
[2022-07-15] MEDS: Sodium Chloride 0.9% 1,000 ML IV SCH (03:38)
[2022-07-15 05:43] LABS: #Eosinphils 0.2 thou/uL (0.0-0.7); #Lymphocytes 2.6 thou/uL (1.20-3.40); #Monocytes 0.4 thou/uL (0.11-0.59); #Neutrophils 2.1 thou/uL (1.40-6.50); %Basophils 0.7 % (0.0-1.0); %Eosinophils 4.7 % (0.0-10.0); %Lymphocytes 48.1 % (21.0-51.0); %Monocytes 6.7 % (0.0-10.0); %Neutrophils 39.8 % (42.0-75.0); Hemoglobin 12.9 g/dL (12.0-16.0); Mean Corpuscular HGB CONC 34.2 g/dL (32.0-36.0); Mean Corpuscular Hemoglobin 31.5 pg (27.0-31.0); Mean Corpuscular Volume 92.1 fl (78.0-98.0); Platelet Count 173 10x3/uL (130-400); RBC Distribution Width 11.8 % (11.5-14.5); White Blood Cell (WBC) Count 5.3 10x3/uL (4.8-10.8)
[2022-07-15 05:56] LABS: Anion Gap 11 mmol/L (10-20); BUN (Urea Nitrogen) 17 mg/dL (7.0-18.7); Calc. Creatinine Clearance 196 mL/min (70-130); Calcium 8.7 mg/dL (7.8-10.44); Carbon Dioxide 22 mmol/L (22-29); Chloride 110 mmol/L (98-107); Estimated GFR 104; Glucose 152 mg/dL (70-105); Potassium 3.2 mmol/L (3.5-5.1); Sodium 140 mmol/L (136-145)
[2022-07-15] MEDS ORDERED: FLU VACC QS2022-23(6MOS UP)/PF 60 MCG/0.5 ML SYRINGE IM ONE (09:00)
[2022-07-15] MEDS ORDERED: Potassium Chloride 20 MEQ TAB PO SCH (09:30)
[2022-07-15] MEDS ORDERED: hydrOXYzine 25 MG TAB PO PRN (12:41)
[2022-07-15] MEDS ORDERED: Metoprolol Tartrate 25 MG TAB PO SCH (12:45)
[2022-07-15] MEDS ORDERED: Gabapentin 300 MG CAP PO SCH (12:45)
[2022-07-15] MEDS ORDERED: OXcarbazepine 300 MG TAB PO SCH (13:15)
[2022-07-15] MEDS: busPIRone HCl 5 MG TAB PO SCH ×2 (13:48→22:04)
[2022-07-15] MEDS: HumaLOG 300 UNITS/3 ML VIAL SC PRN (14:04)
[2022-07-15] MEDS: Melatonin 3 MG TAB PO PRN (22:00)
[2022-07-15] MEDS: traZODone HCl 150 MG TAB PO SCH (22:01)
[2022-07-15] MEDS: Ibuprofen 800 MG TAB PO SCH (22:01)
[2022-07-15] MEDS: Atorvastatin Calcium 10 MG TAB PO SCH (22:02)
[2022-07-15] MEDS: Apixaban 5 MG TAB PO SCH (22:02)
[2022-07-15] MEDS: Fluconazole 100 MG TAB PO SCH (22:03)
[2022-07-15] MEDS: Gabapentin 300 MG CAP PO SCH (22:03)
[2022-07-15] MEDS: Metoprolol Tartrate 25 MG TAB PO SCH (22:03)
[2022-07-15] MEDS: OXcarbazepine 300 MG TAB PO SCH (22:05)
[2022-07-16] MEDS ORDERED: hydrOXYzine 25 MG TAB PO SCH (07:00)
[2022-07-16] MEDS ORDERED: Potassium Chloride 20 MEQ TAB PO SCH (08:00)
[2022-07-16] MEDS: Metoprolol Tartrate 25 MG TAB PO SCH ×2 (08:24→20:53)
[2022-07-16] MEDS: Ibuprofen 800 MG TAB PO SCH ×2 (08:24→20:53)
[2022-07-16] MEDS: Empagliflozin 10 MG TAB PO SCH (08:24)
[2022-07-16] MEDS: Gabapentin 300 MG CAP PO SCH ×2 (08:24→20:53)
[2022-07-16] MEDS: OXcarbazepine 300 MG TAB PO SCH ×2 (08:25→20:52)
[2022-07-16] MEDS ORDERED: Fenofibrate Nanocrystallized 145 MG TAB PO SCH ×2 (09:00→21:00)
[2022-07-16] MEDS ORDERED: Lidocaine 1% w/Epinephrine 1:100K 20 ML VIAL ONE (09:59)
[2022-07-16] MEDS: Apixaban 5 MG TAB PO SCH ×2 (11:07→20:52)
[2022-07-16] MEDS: busPIRone HCl 5 MG TAB PO SCH ×2 (11:08→20:52)
[2022-07-16] MEDS: HumaLOG 300 UNITS/3 ML VIAL SC PRN (11:51)
[2022-07-16] MEDS: hydrOXYzine 25 MG TAB PO PRN ×2 (12:29→20:51)
[2022-07-16] MEDS: traZODone HCl 150 MG TAB PO SCH (20:51)
[2022-07-16] MEDS: Melatonin 3 MG TAB PO PRN (20:52)
[2022-07-16] MEDS: Fluconazole 100 MG TAB PO SCH (20:53)
[2022-07-16] MEDS: Atorvastatin Calcium 10 MG TAB PO SCH (20:53)
[2022-07-17 05:43] LABS: Hemoglobin 13.4 g/dL (12.0-16.0); Mean Corpuscular HGB CONC 34.3 g/dL (32.0-36.0); Mean Corpuscular Hemoglobin 31.9 pg (27.0-31.0); Mean Corpuscular Volume 92.7 fl (78.0-98.0); Mean Platelet Volume 7.7 fL (7.4-10.4); Platelet Count 178 10x3/uL (130-400); RBC Distribution Width 12.1 % (11.5-14.5); White Blood Cell (WBC) Count 5.6 10x3/uL (4.8-10.8)
[2022-07-17 05:51] LABS: Anion Gap 12 mmol/L (10-20); BUN (Urea Nitrogen) 21 mg/dL (7.0-18.7); Calc. Creatinine Clearance 202 mL/min (70-130); Calcium 9.2 mg/dL (7.8-10.44); Carbon Dioxide 20 mmol/L (22-29); Chloride 108 mmol/L (98-107); Estimated GFR 107; Glucose 138 mg/dL (70-105); Potassium 3.7 mmol/L (3.5-5.1); Sodium 136 mmol/L (136-145)
[2022-07-17 06:32] LABS: Band 2 % (5-11); Eosinophils 3 % (0-10); Lymphocytes 59 % (21-51); MDiff Complete? YES; Monocytes 7 % (0-10); Neutrophil 29 % (42-75)
[2022-07-17 08:05] VITALS: TEMP 97.1
[2022-07-17 08:18] VITALS: BP 110/59
[2022-07-17] MEDS: busPIRone HCl 5 MG TAB PO SCH (09:55)
[2022-07-17] MEDS: OXcarbazepine 300 MG TAB PO SCH (09:56)
[2022-07-17] MEDS: Metoprolol Tartrate 25 MG TAB PO SCH (09:56)
[2022-07-17] MEDS: Gabapentin 300 MG CAP PO SCH (09:56)
[2022-07-17] MEDS: Ibuprofen 800 MG TAB PO SCH (09:57)
[2022-07-17] MEDS: Empagliflozin 10 MG TAB PO SCH (09:57)
[2022-07-17] MEDS: Apixaban 5 MG TAB PO SCH (09:57)
== END 2022-07-17 11:48 | disposition home or self-care (01) | DRG 917 ==
LOC: ERS 14:37 → NEURO 17:07 → OBSVTOIN 07-16 10:10
PROVIDERS: ADMIT Family Medicine; ATTEND Family Medicine
DX: T50.991A Poisoning by other drugs, medicaments and biological substances, accidental (unintentional), initial encounter (principal); G92.8 Other toxic encephalopathy; Z68.43 Body mass index [BMI] 50.0-59.9, adult; Z20.822 Contact with and (suspected) exposure to COVID-19; I48.0 Paroxysmal atrial fibrillation; E78.5 Hyperlipidemia, unspecified; E11.9 Type 2 diabetes mellitus without complications; F25.9 Schizoaffective disorder, unspecified; F43.10 Post-traumatic stress disorder, unspecified; F31.9 Bipolar disorder, unspecified; F41.9 Anxiety disorder, unspecified; E66.01 Morbid (severe) obesity due to excess calories; G89.4 Chronic pain syndrome; Z88.4 Allergy status to anesthetic agent; Z28.21 Immunization not carried out because of patient refusal; Z79.01 Long term (current) use of anticoagulants; Z88.0 Allergy status to penicillin; Z88.8 Allergy status to other drugs, medicaments and biological substances; Z79.899 Other long term (current) drug therapy; Z79.82 Long term (current) use of aspirin; Z79.84 Long term (current) use of oral hypoglycemic drugs; Z90.710 Acquired absence of both cervix and uterus; Z86.718 Personal history of other venous thrombosis and embolism
CPT/HCPCS: 33285; 36415; 36416; 51701; 70450; 70544; 70551; 80048; 80053; 80306; 80307; 81003; 82550; 82805; 84443; 84703; 85025; 93005; 93306; 93880; 95816; 95819; 95957; 96374; 96375; G0378; J1200; J1815; J2060; J2310; J2765; J7050; U0003; U0005

== ENCOUNTER 2022-10-12 15:14 | Emergency (ER) | payer OTHER ==
[2022-10-12 15:55] LABS: #Eosinphils 0.2 thou/uL (0.0-0.7); #Lymphocytes 3.1 thou/uL (1.20-3.40); #Monocytes 0.3 thou/uL (0.11-0.59); #Neutrophils 3.4 thou/uL (1.40-6.50); %Basophils 0.6 % (0.0-1.0); %Eosinophils 3.4 % (0.0-10.0); %Monocytes 4.7 % (0.0-10.0); %Neutrophils 48.3 % (42.0-75.0); Hemoglobin 13.9 g/dL (12.0-16.0); Mean Corpuscular HGB CONC 34.8 g/dL (32.0-36.0); Mean Corpuscular Hemoglobin 32.4 pg (27.0-31.0); Mean Corpuscular Volume 93.1 fl (78.0-98.0); Mean Platelet Volume 7.6 fL (7.4-10.4); Platelet Count 230 10x3/uL (130-400); RBC Distribution Width 11.9 % (11.5-14.5); White Blood Cell (WBC) Count 7.1 10x3/uL (4.8-10.8)
[2022-10-12 16:17] LABS: ALT (SGPT) 25 U/L (8-55); AST (SGOT) 23 U/L (5-34); Albumin 4.3 g/dL (3.5-5.0); Alkaline Phosphatase 33 U/L (40-110); Anion Gap 15 mmol/L (10-20); BUN (Urea Nitrogen) 24 mg/dL (7.0-18.7); Bilirubin, Total 0.3 mg/dL (0.2-1.2); Calc. Creatinine Clearance 0 mL/min (70-130); Calcium 9.5 mg/dL (7.8-10.44); Carbon Dioxide 21 mmol/L (22-29); Chloride 106 mmol/L (98-107); Estimated GFR 87; Glucose 162 mg/dL (70-105); Potassium 3.8 mmol/L (3.5-5.1); Protein, Total 7.3 g/dL (6.0-8.3); Sodium 138 mmol/L (136-145)
[2022-10-12] MEDS ORDERED: Morphine 4 MG/ML VIAL ONE (18:03)
== END 2022-10-12 19:37 | disposition home or self-care (01) ==
LOC: ERS 15:14
DX: N64.4 Mastodynia (principal); L08.9 Local infection of the skin and subcutaneous tissue, unspecified; E11.9 Type 2 diabetes mellitus without complications; Z79.01 Long term (current) use of anticoagulants; Z79.899 Other long term (current) drug therapy; Z79.84 Long term (current) use of oral hypoglycemic drugs
CPT/HCPCS: 36415; 80053; 83605; 85025; 96372; J2270

== ENCOUNTER 2022-11-29 21:00 | Emergency (ER) | payer OTHER ==
[2022-11-29] MEDS ORDERED: Ketorolac Tromethamine 30 MG/ML VIAL ONE (23:13)
[2022-11-29] MEDS ORDERED: Cyclobenzaprine 10 MG TAB ONE (23:13)
== END 2022-11-30 00:46 | disposition home or self-care (01) ==
LOC: ERS 21:00
DX: M54.41 Lumbago with sciatica, right side (principal); E11.9 Type 2 diabetes mellitus without complications; I48.91 Unspecified atrial fibrillation; Z79.01 Long term (current) use of anticoagulants; Z79.899 Other long term (current) drug therapy; Z79.84 Long term (current) use of oral hypoglycemic drugs
CPT/HCPCS: 96372; 99283; J1885

== ENCOUNTER 2023-01-10 18:36 | Emergency (ER) | payer OTHER ==
[2023-01-10] MEDS ORDERED: methylPREDNISolone Sod Succ/PF 125 MG/2 ML VIAL ONE (19:56)
[2023-01-10] MEDS ORDERED: Diazepam 5 MG TAB ONE (19:56)
[2023-01-10] MEDS ORDERED: Ketorolac Tromethamine 30 MG/ML VIAL ONE (19:59)
== END 2023-01-10 20:54 | disposition home or self-care (01) ==
LOC: ERS 18:36
DX: M79.604 Pain in right leg (principal); E11.9 Type 2 diabetes mellitus without complications
CPT/HCPCS: 96372; 99283; J1885; J2930

== ENCOUNTER 2023-12-21 17:48 | Emergency (ER) | payer OTHER ==
[2023-12-21] MEDS ORDERED: Dexamethasone 10 MG/ML VIAL ONE (19:51)
[2023-12-21] MEDS ORDERED: diphenhydrAMINE 50 MG/ML VIAL ONE (19:51)
[2023-12-21] MEDS ORDERED: Metoclopramide HCl 10 MG (2 mL) VIAL ONE (19:52)
[2023-12-21] MEDS ORDERED: fentaNYL 50 mcg/mL 1 mL Vial ONE (19:52)
[2023-12-21] MEDS ORDERED: Meclizine HCl 25 MG TAB ONE (19:52)
[2023-12-21 20:20] LABS: Bacteria/HPF None Seen HPF (None Seen); Bilirubin Negative (Negative); Blood, Urine Negative (Negative); CAUTI Indications for Culture Dysuria,urgency,freq; Calcium Oxalate Crystals 2+ HPF (None Seen); Clarity Clear (Clear); Glucose, Urine (Dipstick) Normal (Negative); Ketone, Urine Trace mg/dL (Negative); Leukocyte 75 Leu/uL (Negative); Nitrite Negative (Negative); Protein, Urine (Dipstick) 50 mg/dL (Neg-Trace); Specific Gravity, Urine 1.042 (1.002-1.036)
[2023-12-21 20:23] LABS: #Basophils Less than 0.03 10x3/uL (0.0-0.2); %Basophils 0.4 % (0.0-1.0); %Lymphocytes 57.6 % (21.0-51.0); %Monocytes 6.2 % (0.0-10.0); %Neutrophils 31.8 % (42.0-75.0); Hematocrit 33.9 % (36.0-47.0); Hemoglobin 11.5 g/dL (12.0-16.0); Mean Corpuscular HGB CONC 33.9 g/dL (32.0-36.0); Mean Corpuscular Hemoglobin 31.4 pg (27.0-31.0); Mean Corpuscular Volume 92.6 fL (78.0-98.0); Mean Platelet Volume 10.6 fL (7.4-10.4); Platelet Count 175 10x3/uL (130-400); RBC Distribution Width 13.2 % (11.5-14.5); Red Blood Cell (RBC) Count 3.66 mill/uL (4.20-5.40)
[2023-12-21 20:24] LABS: Urine Culture Reflex No No
[2023-12-21 20:37] LABS: Amphetamine Not Detected (NotDetected); Barbiturates Screen Not Detected (NotDetected); Benzodiazepine Screen Detected (NotDetected); Cocaine Metabolite Screen Not Detected (NotDetected); Methadone Not Detected (NotDetected); Methamphetamine Not Detected (NotDetected); Opiate Screen Not Detected (NotDetected); Oxycodone Screen Not Detected (NotDetected); Phencyclidine (PCP) Not Detected (NotDetected); THC/Cannabinoid Screen Detected (NotDetected); Tricyclic Screen Detected (NotDetected)
[2023-12-21 20:38] LABS: Lipase 41 U/L (8-78)
[2023-12-21 20:39] LABS: ALT (SGPT) 18 U/L (8-55); AST (SGOT) 22 U/L (5-34); Albumin 3.7 g/dL (3.5-5.0); Alkaline Phosphatase 25 U/L (40-110); Anion Gap 16 mmol/L (10-20); BUN (Urea Nitrogen) 25 mg/dL (7.0-18.7); Bilirubin, Total 0.3 mg/dL (0.2-1.2); Calc. Creatinine Clearance 0 mL/min (70-130); Calcium 8.9 mg/dL (7.8-10.44); Carbon Dioxide 20 mmol/L (22-29); Chloride 108 mmol/L (98-107); Estimated GFR 107; Globulin 2.6 g/dL (2.4-3.5); Glucose 100 mg/dL (70-105); Potassium 3.6 mmol/L (3.5-5.1); Protein, Total 6.3 g/dL (6.0-8.3); Sodium 140 mmol/L (136-145)
[2023-12-21 20:40] LABS: Acetaminophen Less than 10 mcg/mL (10.0-30.0); Alcohol Less than 10.0 mg/dL (Less than 10); Salicylate Less than 8.0 mg/dL (15.0-30.0)
== END 2023-12-21 22:35 | disposition home or self-care (01) ==
LOC: ERS 17:48
DX: R51.9 Headache, unspecified (principal); I48.91 Unspecified atrial fibrillation; E11.43 Type 2 diabetes mellitus with diabetic autonomic (poly)neuropathy; K31.84 Gastroparesis
CPT/HCPCS: 70450; 80053; 80306; 80307; 81001; 83690; 85025; 96374; 96375; J1100; J1200; J2765; J3010

== ENCOUNTER 2025-01-21 06:28 | Day surgery (SDC) | payer MEDICAID ==
[2025-01-20 13:07] VITALS: BMI 31.8
[2025-01-21] MEDS ORDERED: PROPOFOL 40 ML ONE (07:08)
[2025-01-21] MEDS ORDERED: PHENYLEPHRINE-NS 100 MCG/ML 10 ML SYRINGE ONE (08:14)
== END 2025-01-21 09:32 | disposition home or self-care (01) ==
LOC: SDC 06:28
PROVIDERS: ATTEND Internal Medicine Gastroenterology
PROC: 0DJ08ZZ Inspection of Upper Intestinal Tract, Via Natural or Artificial Opening Endoscopic (ICD-10-PCS; principal; 2025-01-21)
PROC: 0D717ZZ Dilation of Upper Esophagus, Via Natural or Artificial Opening (ICD-10-PCS; principal; 2025-01-21)
DX: R13.19 Other dysphagia (principal); E11.43 Type 2 diabetes mellitus with diabetic autonomic (poly)neuropathy; K29.90 Gastroduodenitis, unspecified, without bleeding; K59.09 Other constipation; I48.91 Unspecified atrial fibrillation; E66.9 Obesity, unspecified; Z68.31 Body mass index [BMI] 31.0-31.9, adult; Z86.718 Personal history of other venous thrombosis and embolism; Z87.891 Personal history of nicotine dependence; Z90.710 Acquired absence of both cervix and uterus; Z90.49 Acquired absence of other specified parts of digestive tract; Z91.030 Bee allergy status; Z88.0 Allergy status to penicillin; Z88.8 Allergy status to other drugs, medicaments and biological substances; Z91.048 Other nonmedicinal substance allergy status; Z79.01 Long term (current) use of anticoagulants; Z79.85 Long-term (current) use of injectable non-insulin antidiabetic drugs; Z79.899 Other long term (current) drug therapy
CPT/HCPCS: J2704